=== PATIENT | female | born 1940 | race African-American/Black ===

== ENCOUNTER 2016-11-25 13:13 | Inpatient (IN) | payer MEDICARE, BC, OTHER ==
[~2016-11-25] VITALS: Ht 154.9 cm; Wt 60.8 kg
[~2016-11-25 13:13] MED LIST: ADALAT CC60 MG ORAL; ADALAT CC90 MG ORAL; ASPIR 8181 MG ORAL; ATORVASTATIN CA80 MG ORAL; CATAPRES0.3 MG ORAL; CLONIDINE 0.2M0.2 MG PO; COREG3.125 MG ORAL; COZAAR50 MG ORAL; FUROSEMIDE80 MG ORAL; GLUCOTROL5 MG ORAL; HYDRALAZINE HCL50 MG PO; HYDROCHLOROTHIA25 MG ORAL; IRON325 M2 PO; LABETALOL HCL200 MG ORAL; LEVEMIR100 UNIT/1 SUBQ; LOSARTAN POTASS50 MG ORAL; METFORMIN HCL850 M1 ORAL; MINOXIDIL2.5 MG ORAL; NEPHROVITE1 TAB ORAL; POTASSIUM CHLO20 ME1 ORAL; RENVELA0.8 GM ORAL
[2016-11-25 13:40] VITALS: BP 130/57
[2016-11-25 14:00] LABS: BASOPHILS % (AUTO) 1.8 % (0.0-2.0); EOSINOPHILS % (AUTO) 0.4 % (0.0-3.0); LYMPHOCYTES % (AUTO) 17.7 % (20.0-45.0); MEAN CORPUSCULAR HEMOGLOBIN 27.1 PG (27.0-31.0); MEAN CORPUSCULAR HGB CONC 31.3 G/DL (32.0-36.0); MEAN CORPUSCULAR VOLUME 87 FL (80-99); MEAN PLATELET VOLUME 10.4 FL (6.5-10.1); MONOCYTES % (AUTO) 7.5 % (1.0-10.0); NEUTROPHILS % (AUTO) 72.7 % (45.0-75.0); PLATELET COUNT 191 K/UL (150-450); RED BLOOD COUNT 3.97 M/UL (4.20-5.40); RED CELL DISTRIBUTION WIDTH 19.9 % (11.6-14.8); WHITE BLOOD COUNT 10.2 K/UL (4.8-10.8)
[2016-11-25 14:12] LABS: PROTHROMBIN TIME 10.3 SEC (9.30-11.50)
[2016-11-25 14:15] LABS: ALANINE AMINOTRANSFERASE 26 U/L (3-33); ALBUMIN/GLOBULIN RATIO 1.1 (1.0-2.7); ANION GAP 16 (5-15); ASPARTATE AMINO TRANSFERASE 25 U/L (5-40); CALCIUM 9.4 mg/dL (8.6-10.2); CARBON DIOXIDE 28 mEQ/L (20-30); CHLORIDE 92 mEQ/L (98-107); CREATININE 4.8 mg/dL (0.5-0.9); HEMOLYSIS 4; SODIUM 136 mEQ/L (135-145); TOTAL PROTEIN 7.6 g/dL (6.6-8.7); TROPONIN I < 0.30 ng/mL (<=0.30)
[2016-11-25 14:26] LABS: CKMB 2.9 ng/mL (< 3.8)
--- NOTE | 2016-11-25 14:28 | Diagnostic Imaging Report ---
Indications: Shortness of breath Technique: Portable AP chest Findings: Comparison: None Cardiac silhouette remains upper limits of normal in size. Pulmonary vasculature remains within normal limits. Inspiratory effort has decreased. Visualized portions of lungs and pleura remain clear. Mild calcification and elongation of the aortic arch is again noted. IMPRESSION: No evidence of acute disease, unchanged Stable chronic changes as described
[2016-11-25 14:43] LABS: APPEARANCE,URINE SLIGHTLY CLOUDY; KETONES,URINE NEGATIVE (NEGATIVE); LEUKOCYTE ESTERASE ,URINE 1+ (NEGATIVE); NITRITE,URINE NEGATIVE (NEGATIVE); PH,URINE 9 (4.5-8.0); PROTEIN,URINE 3+ (NEGATIVE); UROBILINOGEN,URINE NORMAL MG/DL (0.0-1.0)
[2016-11-25 14:53] LABS: BACTERIA,URINE FEW /HPF; RBC,URINE 0-2 /HPF (0 - 2); SQUAMOUS EPITHELIAL CELL,UR MODERATE /LPF (NONE/OCC); WBC,URINE 0-2 /HPF (0 - 2)
--- NOTE | 2016-11-25 15:36 | Emergency Room Report ---
History of Present Illness General Chief Complaint: Chest Pain Source: Patient Present Illness HPI This patient presents with intermittent chest pain for primarily today. She is also fell general malaise and been lightheaded. She denies cough or congestion. She denies fever or chills. She does have end-stage renal disease but with her dialysis yesterday. She denies abdominal pain. She has no other complaints. Allergies: Coded Allergies: No Known Allergies (Verified , 10/07/08) Patient History Past Medical History: see triage record, DM, HTN, CAD, CHF, renal disease, dialysis Past Surgical History: other - ectopic tubal ligation Social History: Denies: alcohol use, drug use, smoking Reviewed Nursing Documentation: PMH: Agreed, PSxH: Agreed Nursing Documentation-PMH Past Medical History: No History, Except For Hx Cardiac Problems: Yes Hx Hypertension: Yes Hx Diabetes: Yes Hx Cancer: No Hx Gastrointestinal Problems: No Hx Dialysis: Yes - HEMODIALYSIS MWF Hx Neurological Problems: No Review of Systems All Other Systems: negative except mentioned in HPI Physical Exam Vital Signs Date Time Temp Pulse Resp B/P Pulse Ox O2 Delivery O2 Flow Rate FiO2 11/25/16 13:20 97.3 70 14 140/62 99 Room Air Sp02 EP Interpretation: reviewed, normal General Appearance: no apparent distress, alert, GCS 15, non-toxic Head: normocephalic, atraumatic Eyes: bilateral eye PERRL, bilateral eye normal inspection ENT: hearing grossly normal, normal pharynx, no angioedema, normal voice Neck: full range of motion, supple/symm/no masses Respiratory: chest non-tender, lungs clear, normal breath sounds, speaking full sentences Cardiovascular #1: regular rate, rhythm, no edema Gastrointestinal: normal bowel sounds, non tender, soft, non-distended, no guarding, no rebound Musculoskeletal: back normal, normal range of motion, non-tender Neurologic: alert, oriented x3, responsive, motor strength/tone normal, sensory intact, speech normal Psychiatric: judgement/insight normal, memory normal, mood/affect normal, no suicidal/homicidal ideation Skin: normal color, no rash, warm/dry, well hydrated Medical Decision Making Diagnostic Impression: Primary Impression: Chest pain ER Course This patient presents with chest pain. She continues to have stuttering chest pain. She has a negative initial workup. However given her baseline chronic medical conditions, I felt that I should admit this patient to rule out acute coronary syndrome. Apparently, she has had a heart catheterization that has been negative in the past. However, the patient continues to have chest pain here in the emergency department. No evidence of congestive heart failure on chest x-ray. Otherwise a negative workup. She is admitted to telemetry. Labs Test 11/25/16 13:55 11/25/16 14:21 White Blood Count 10.2 K/UL (4.8-10.8) Red Blood Count 3.97 M/UL (4.20-5.40) Hemoglobin 10.8 G/DL (12.0-16.0) Hematocrit 34.4 % (37.0-47.0) Mean Corpuscular Volume 87 FL (80-99) Mean Corpuscular Hemoglobin 27.1 PG (27.0-31.0) Mean Corpuscular Hemoglobin Concent 31.3 G/DL (32.0-36.0) Red Cell Distribution Width 19.9 % (11.6-14.8) Platelet Count 191 K/UL (150-450) Mean Platelet Volume 10.4 FL (6.5-10.1) Neutrophils (%) (Auto) 72.7 % (45.0-75.0) Lymphocytes (%) (Auto) 17.7 % (20.0-45.0) Monocytes (%) (Auto) 7.5 % (1.0-10.0) Eosinophils (%) (Auto) 0.4 % (0.0-3.0) Basophils (%) (Auto) 1.8 % (0.0-2.0) Prothrombin Time 10.3 SEC (9.30-11.50) Prothromb Time International Ratio 1.0 (0.9-1.1) Activated Partial Thromboplast Time 27 SEC (23-33) Sodium Level 136 mEQ/L (135-145) Potassium Level 4.0 mEQ/L (3.4-4.9) Chloride Level 92 mEQ/L (98-107) Carbon Dioxide Level 28 mEQ/L (20-30) Anion Gap 16 (5-15) Blood Urea Nitrogen 28 mg/dL (7-23) Creatinine 4.8 mg/dL (0.5-0.9) Estimat Glomerular Filtration Rate mL/min (>60) Glucose Level 60 mg/dL (74-106) Calcium Level 9.4 mg/dL (8.6-10.2) Total Bilirubin 0.2 mg/dL (0.0-1.2) Aspartate Amino Transf (AST/SGOT) 25 U/L (5-40) Alanine Aminotransferase (ALT/SGPT) 26 U/L (3-33) Alkaline Phosphatase 128 U/L (35-104) Total Creatine Kinase 150 U/L (26-140) Creatine Kinase MB 2.9 ng/mL (< 3.8) Creatine Kinase MB Relative Index 1.9 Troponin I < 0.30 ng/mL (<=0.30) Pro-B-Type Natriuretic Peptide 1804 pg/mL (0-450) Total Protein 7.6 g/dL (6.6-8.7) Albumin 4.1 g/dL (3.5-5.2) Globulin 3.5 g/dL Albumin/Globulin Ratio 1.1 (1.0-2.7) Urine Color Pale yellow Urine Appearance Slightly cloudy Urine pH 9 (4.5-8.0) Urine Specific [place] 1.015 (1.005-1.035) Urine Protein 3+ (NEGATIVE) Urine Glucose (UA) Negative (NEGATIVE) Urine Ketones Negative (NEGATIVE) Urine Occult Blood Negative (NEGATIVE) Urine Nitrite Negative (NEGATIVE) Urine Bilirubin Negative (NEGATIVE) Urine Urobilinogen Normal MG/DL (0.0-1.0) Urine Leukocyte Esterase 1+ (NEGATIVE) Urine RBC 0-2 /HPF (0 - 2) Urine WBC 0-2 /HPF (0 - 2) Urine Squamous Epithelial Cells Moderate /LPF (NONE/OCC) Urine Bacteria Few /HPF (NONE) EKG Diagnostic Results Rate: normal Rhythm: NSR ST Segments: no acute changes Rhythm Strip Diag. Results EP Interpretation: yes Rate: 60's Rhythm: NSR, no PVC's, no ectopy Chest X-Ray Diagnostic Results EP Interpretation: Yes Findings: no consolidation, no effusion, no pneumothorax, no acute cardiopulmonary disease Number of Views: 1 Last Vital Signs Date Time Temp Pulse Resp B/P Pulse Ox O2 Delivery O2 Flow Rate FiO2 11/25/16 13:40 59 20 Room Air 11/25/16 13:40 98.0 130/57 100 Disposition: ADMITTED INPATIENT Condition: Stable Referrals: NOT CHOSEN IPA/MD,REFERRING (PCP) COLIANNO,GRACIELA M D.O. Nov 25, 2016 15:36
[2016-11-25] MEDS ORDERED: HYDRALAZINE HCL50 MG ORAL (15:37)
[2016-11-25 15:42] VITALS: BP 147/50
[2016-11-25] MEDS ORDERED: Norco 5mg/325mg tab ORAL ONE (17:30)
[2016-11-25 17:46] VITALS: BP 164/55
[2016-11-25 18:35] VITALS: BP 159/58
[2016-11-25 20:23] VITALS: BP 166/53
[2016-11-25] MEDS ORDERED: Norco 5mg/325mg tab ORAL PRN (21:45)
--- NOTE | 2016-11-25 22:37 | Consultation ---
DATE OF CONSULTATION: 11/25/2016 NEPHROLOGY CONSULTATION CONSULTING PHYSICIAN: Herman Hmam M.D. REFERRING PHYSICIAN: Abraham Wren M.D. REASON FOR CONSULTATION: End-stage renal disease and multiple medical problems. HISTORY OF PRESENT ILLNESS: The patient is well known to me and I saw her on the day prior to admission on dialysis and she was doing well. She has been on dialysis for a number of years, likely about 4 to 6 years with severe end-stage renal disease secondary to hypertension and diabetes, long-standing. She did have an episode of herpes zoster with rash on the right side of her chest about 3 months ago. She has had [id number] hypertension and bradycardia due to medications for hypertension including clonidine. The patient generally has been doing well. She has chronic diastolic CHF and this has been well compensated and she has not had any problems with shortness of breath or cough lately. Today, she comes in to the emergency room stating she feels miserable, she has pain on the right side of the chest under the clavicle. It is moderately severe. She is also having pain radiating from the right groin down to the right foot. She does have history of vascular disease and has had a left axillary femoral bypass or possibly bi-femoral bypass, but she does not give good history of claudication. She does have a right arm AV fistula which has been working well, but the pain seems to be in the chest above the right arm fistula. PAST SURGICAL HISTORY: Prior surgeries include tubal , vascular surgery a left axillary femoral bypass, section, cataracts in both eyes, and AV fistula in the right arm. HABITS: She is a nondrinker and nonsmoker. No use of illicit drugs. MEDICATIONS: Include Lantus 6 units daily, clonidine 0.4 mg b.i.d., Coreg 3.125 mg b.i.d., nifedipine 90 mg daily, hydralazine 150 mg b.i.d., losartan 100 mg daily, and Renvela 1 pill with each meal. SYSTEM REVIEW: HEAD, EYES, EARS, NOSE, THROAT: She has history of glaucoma and takes eyedrops. Hearing is good. ENDOCRINE: Long-standing diabetes. No thyroid disease. PULMONARY: No asthma, TB, or chronic cough. CARDIAC: History of hypertensive heart disease, malignant hypertension, prior diastolic dysfunction, and CHF. GASTROINTESTINAL: She has had some constipation lately. No hematochezia or melena. GENITOURINARY: No dysuria or hematuria. NEUROLOGIC: No CVA or seizures. MUSCULOSKELETAL: No history of severe joint pain. PHYSICAL EXAMINATION: GENERAL: The patient is alert, elderly lady, lying in bed, in the emergency room. VITAL SIGNS: Temperature 98 degrees, pulse 64, respirations 16, blood pressure 147/50, and pulse oximetry 100%. HEAD, EYES, EARS, NOSE, THROAT: Sclerae nonicteric. Ocular motions intact in all directions. Oral mucosa is moist. NECK: No adenopathy or thyroid enlargement. LUNGS: Clear. HEART: Rhythm is regular. Normal S1, S2. I hear no murmurs. ABDOMEN: Soft. No organomegaly or masses. CHEST: There is mild tenderness to the right upper chest wall. BREASTS: No masses. EXTREMITIES: No edema, cyanosis, or clubbing. There is a well-functioning AV fistula in the right upper arm. There is no inflammation along the fistula. SKIN: There is no herpetic rash, but there are some scars on the right side of her chest. VASCULAR: Her feet are warm, but I am unable to feel the pedal pulses. IMPRESSION: The patient presents with pain in the right side of her chest. This could be postherpetic neuralgia. She has had herpes zoster in this area, possibly this is related to AV fistula in the right arm, but it seems unlikely that this . She also has pain down the right leg which could be sciatica. She does not seem to have an acute vascular problem at this time. PLAN: The case was discussed with Dr. Abraham Wren. We will observe the patient and give her comfort measures. I will order fistulogram to evaluate the fistula in the right arm. She will receive maintenance dialysis in the hospital and we will update her laboratories and make further recommendations as her condition requires. Herman Hamm M.D. DR: Mariella JOB#: [id number] CC:
[2016-11-26] VITALS (34 sets, daily range): BP systolic 141–206; BP diastolic 54–86
--- NOTE | 2016-11-26 03:28 | History and Physical Report ---
DATE OF ADMISSION: 11/25/2016 REASON FOR ADMISSION: Chest pain and shortness of breath. HISTORY OF PRESENT ILLNESS: This is a 76-year-old female, who has a longstanding history of malignant hypertension and end-stage renal disease on hemodialysis for about 5 years. She was seen on dialysis yesterday by Dr. Hamm and was doing well. She was seen in my office today for routine followup, but presented saying that she started feeling few hours earlier. She noted shortness of breath, chest pain, and feeling that she was very miserable and could not manage. This is quite unusual for her and she to seek any medical attention or hospitalizations. The patient notes severe pain on the right side of her chest under the clavicle region and radiation from the groin to the foot. She did not have any fevers, chills, nausea, vomiting, or trauma to the chest wall. PAST MEDICAL HISTORY: Peripheral artery disease, status post bypass, history of AV fistula of the right upper extremity, history of tubal , status post left axillary fem bypass, cataracts, hyperlipidemia, end-stage renal disease, hypertensive heart disease, and diastolic dysfunction. MEDICATIONS: Reviewed and reconciled. ALLERGIES: None known. SOCIAL HISTORY: Negative for smoking or alcohol use. REVIEW OF SYSTEMS: An outpatient echocardiogram has revealed normal ejection fraction, concentric hypertrophy, [id number] pulmonary hypertension, and mild valvular regurgitation. She has a history of sinus bradycardia with longstanding and asymptomatic and likely due to her medication regimen that has included beta-blockers and clonidine. There is no history of asthma. There is no history of blood clots in the leg. She has had prior vascular revascularizations of her lower extremities. She is on dialysis three times a week. She is quite compliant with medications. PHYSICAL EXAMINATION: GENERAL: Awake and alert, but distress. VITAL SIGNS: Temperature afebrile, blood pressure 147/50, pulse 64, and respiratory rate 16. HEENT: Temporal wasting. Pale conjunctivae. Arcus seniles. Oropharynx clear. Mucous membranes moist. NECK: Supple. No adenopathy. Jugular venous pressure normal. LUNGS: Clear. CARDIAC: Regular rhythm and rate. Normal S1 and S2 with a fourth heart sound and a 1/6 systolic murmur at the lower left sternal border. BREASTS: Without masses, but chest wall is severely tender to palpation over the right upper chest. ABDOMEN: Soft and nontender with no organomegaly. EXTREMITIES: Revealed no clubbing, cyanosis, or edema. Right upper extremity fistula has a palpable bruits. Revealed good perfusion, but no palpable distal pulses over the lower extremities. LABORATORY DATA: EKG revealed sinus rhythm with nonspecific ST changes and no acute abnormalities. Labs, urinalysis, no active sediment. Sodium 136, potassium 4, bicarbonate 28, BUN 28, and creatinine 4.6. Pro-natriuretic peptide 1800. INR 1. White count is 10.2 and hemoglobin 10.8. Chest x-ray with no acute disease. IMPRESSION: Chest pain, rule out ischemia. Other considerations would include postherpetic neuralgia, musculoskeletal symptoms, possibility of pulmonary embolus must be considered as well likely if present of thrombosis from the lower extremities. Possible also be due to from her fistula. PLAN: Recommend cardiac monitoring, serial troponin, pain control, hemodialysis with ultrafiltration, fistulogram evaluation of right upper extremity fistula. Venous duplex of lower extremity. Abraham rWen M.D. DR: Mildred JOB#: [id number] CC:
[2016-11-26] MEDS ORDERED: Heparin Sod 1000 units/ml 10ml IV PRN (06:00)
[2016-11-26 06:56] LABS: BASOPHILS % (AUTO) 0.9 % (0.0-2.0); EOSINOPHILS % (AUTO) 1.6 % (0.0-3.0); LYMPHOCYTES % (AUTO) 6.6 % (20.0-45.0); MEAN CORPUSCULAR HEMOGLOBIN 27.5 PG (27.0-31.0); MEAN CORPUSCULAR HGB CONC 31.5 G/DL (32.0-36.0); MEAN CORPUSCULAR VOLUME 87 FL (80-99); MEAN PLATELET VOLUME 8.3 FL (6.5-10.1); MONOCYTES % (AUTO) 6.3 % (1.0-10.0); NEUTROPHILS % (AUTO) 84.5 % (45.0-75.0); PLATELET COUNT 156 K/UL (150-450); RED BLOOD COUNT 4.05 M/UL (4.20-5.40); RED CELL DISTRIBUTION WIDTH 19.5 % (11.6-14.8); WHITE BLOOD COUNT 12.5 K/UL (4.8-10.8)
[2016-11-26 09:00] LABS: ANION GAP 13 (5-15); CARBON DIOXIDE 26 mEQ/L (20-30); CHLORIDE 99 mEQ/L (98-107); CREATININE 2.8 mg/dL (0.5-0.9); HEMOLYSIS 7; POTASSIUM 3.5 mEQ/L (3.4-4.9); SODIUM 138 mEQ/L (135-145)
[2016-11-26] MEDS: Losartan 50mg tab ORAL SCH (11:24)
[2016-11-26] MEDS ORDERED: Heparin 2000 units/Ns 1000ml INJ ONE (12:30)
[2016-11-26] MEDS ORDERED: Heparin Sod 1000 units/ml 10ml INJ ONE ×2 (12:30→13:15)
[2016-11-26] MEDS ORDERED: Lidocaine 1% Plain 30 ml INJ ONE (12:30)
[2016-11-26] MEDS ORDERED: Sodium Bicarbonate 8.4% 50ml Inj IV ONE (12:30)
--- NOTE | 2016-11-26 12:43 | Pre-Procedure Note/Attestation ---
Pre-Procedure Note/Attestation Complete Prior to Procedure Planned Procedure: right Procedure Narrative: fistuolgram and possible intervention Indications for Procedure Pre-Operative Diagnosis: Chest pain Attestation I attest that I discussed the nature of the procedure; its benefits; risks and complications; and alternatives (and the risks and benefits of such alternatives ), prior to the procedure, with the patient (or the patient's legal teleservices representative). I attest that, if there was a reasonable possibility of needing a blood transfusion, the patient (or the patient's legal teleservices representative) was given the [facility] standardized written summary, pursuant to the Otto Harshad Blood Safety Act ([place] Health and Safety Code # 1645, as amended). I attest that I re-evaluated the patient just prior to the surgery and that there has been no change in the patient's H&P, except as documented below: DEVENDRA BARROSO M.D. Nov 26, 2016 12:43
[2016-11-26] MEDS: HydrALAZINE 50mg tab ORAL SCH ×2 (14:07→22:07)
[2016-11-26] MEDS: NovoLOG Insulin Flexpen SUBQ SCH ×3 (14:08→22:10)
--- NOTE | 2016-11-26 17:13 | Nephrology Progress Note ---
Assessment/Plan Problem List: (1) Sciatica (2) Dialysis AV fistula malfunction (3) End-stage renal disease (4) DM circ dis type I (5) Chest pain Plan dialysis 11/26 stable. Fistulogram done with 2 areas of stenosis--angioplastied Subjective Constitutional: Reports: weakness HEENT: Reports: no symptoms Genitourinary: Reports: no symptoms Neurologic/Psychiatric: Reports: no symptoms Subjective R chest pain better Objective Objective Last 24 Hour Vital Signs Date Time Temp Pulse Resp B/P Pulse Ox O2 Delivery O2 Flow Rate FiO2 11/26/16 16:00 98.8 68 13 165/72 97 Room Air 11/26/16 14:07 186/61 11/26/16 13:48 65 16 186/61 96 Room Air 11/26/16 13:40 65 16 186/61 94 Room Air 11/26/16 13:35 64 14 192/78 93 Room Air 11/26/16 13:30 65 15 191/79 92 Room Air 11/26/16 13:25 64 31 190/79 93 Room Air 11/26/16 13:20 66 24 190/76 94 Room Air 11/26/16 13:15 66 15 189/74 95 Room Air 11/26/16 13:10 65 26 206/77 97 Room Air 11/26/16 13:05 65 15 192/84 99 Room Air 11/26/16 13:00 64 29 183/79 94 Room Air 11/26/16 12:55 63 14 185/78 99 Room Air 11/26/16 12:47 65 16 11/26/16 12:00 68 11/26/16 11:26 176/80 11/26/16 11:24 176/80 11/26/16 11:23 70 176/80 11/26/16 10:55 97.9 60 159/75 11/26/16 10:45 63 165/84 11/26/16 10:30 64 189/78 11/26/16 10:15 63 174/86 11/26/16 10:00 61 157/77 11/26/16 09:45 57 171/69 11/26/16 09:30 59 170/78 11/26/16 09:15 55 182/77 11/26/16 09:00 48 176/80 11/26/16 09:00 58 171/72 11/26/16 08:45 65 178/79 11/26/16 08:44 97.7 61 18 168/77 99 Room Air 11/26/16 08:30 62 172/80 11/26/16 08:15 61 168/77 11/26/16 08:00 59 171/78 11/26/16 08:00 61 11/26/16 07:45 61 166/78 11/26/16 07:30 56 147/65 11/26/16 07:25 97.7 57 152/69 11/26/16 04:07 55 11/26/16 04:00 99.9 62 20 142/58 100 Room Air 11/26/16 00:04 59 11/26/16 00:00 98.1 60 20 150/60 97 Room Air 11/25/16 21:19 98.0 55 15 166/53 100 Room Air 11/25/16 20:23 98.0 55 15 166/53 100 Room Air 11/25/16 18:35 98.0 55 13 159/58 100 Room Air 11/25/16 18:26 98.0 11/25/16 17:46 98.0 58 16 164/55 100 Room Air Intake and Output 11/25/16 11/26/16 19:00 07:00 Output Total 2 ml Balance -2 ml Output Urine Total 2 ml # Voids 1 1 Laboratory Tests 11/26/16 05:35: White Blood Count 12.5H, Red Blood Count 4.05L, Hemoglobin 11.1L, Hematocrit 35.3L, Mean Corpuscular Volume 87, Mean Corpuscular Hemoglobin 27.5, Mean Corpuscular Hemoglobin Concent 31.5L, Red Cell Distribution Width 19.5H, Platelet Count 156, Mean Platelet Volume 8.3, Neutrophils (%) (Auto) 84.5H, Lymphocytes (%) (Auto) 6.6L, Monocytes (%) (Auto) 6.3, Eosinophils (%) (Auto) 1.6, Basophils (%) (Auto) 0.9, Sodium Level 138, Potassium Level 3.5, Chloride Level 99, Carbon Dioxide Level 26, Anion Gap 13, Blood Urea Nitrogen 19, Creatinine 2.8H, Estimat Glomerular Filtration Rate , Glucose Level 140H, Calcium Level 9.0 Height (Feet): 5 Height (Inches): 1.00 Weight (Pounds): 134 General Appearance: WD/WN, no apparent distress, alert EENT: PERRL/EOMI Neck: non-tender, normal alignment Cardiovascular: normal rate, regular rhythm Respiratory/Chest: lungs clear Abdomen: non tender, soft, no organomegaly Extremities: other 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
[2016-11-27 04:25] VITALS: BP 146/57
[2016-11-27] MEDS: HydrALAZINE 50mg tab ORAL SCH ×3 (06:22→21:47)
[2016-11-27] MEDS: NovoLOG Insulin Flexpen SUBQ SCH ×4 (06:24→21:15)
[2016-11-27 08:00] VITALS: BP 150/58
[2016-11-27] MEDS: Losartan 50mg tab ORAL SCH (10:21)
--- NOTE | 2016-11-27 11:18 | Nephrology Progress Note ---
Assessment/Plan Problem List: (1) Sciatica (2) Dialysis AV fistula malfunction (3) End-stage renal disease (4) DM circ dis type I (5) Chest pain Plan dialysis 11/26 stable. Fistulogram done with 2 areas of stenosis--angioplastied , pain resolving, Subjective Constitutional: Reports: no symptoms HEENT: Reports: no symptoms Genitourinary: Reports: no symptoms Neurologic/Psychiatric: Reports: no symptoms Subjective R chest pain better Objective Objective Last 24 Hour Vital Signs Date Time Temp Pulse Resp B/P Pulse Ox O2 Delivery O2 Flow Rate FiO2 11/27/16 10:22 58 150/58 11/27/16 10:21 150/58 11/27/16 10:21 150/58 11/27/16 08:00 58 11/27/16 06:22 146/57 11/27/16 04:25 97.7 58 18 146/57 95 Room Air 11/27/16 04:00 55 11/27/16 00:00 52 11/26/16 23:44 98.4 56 18 141/54 97 Room Air 11/26/16 22:07 156/68 11/26/16 22:07 156/68 11/26/16 20:10 98.2 68 14 156/68 96 Room Air 11/26/16 20:00 63 11/26/16 18:41 68 165/72 11/26/16 16:00 98.8 68 13 165/72 97 Room Air 11/26/16 16:00 58 11/26/16 14:07 186/61 11/26/16 13:48 65 16 186/61 96 Room Air 11/26/16 13:40 65 16 186/61 94 Room Air 11/26/16 13:35 64 14 192/78 93 Room Air 11/26/16 13:30 65 15 191/79 92 Room Air 11/26/16 13:25 64 31 190/79 93 Room Air 11/26/16 13:20 66 24 190/76 94 Room Air 11/26/16 13:15 66 15 189/74 95 Room Air 11/26/16 13:10 65 26 206/77 97 Room Air 11/26/16 13:05 65 15 192/84 99 Room Air 11/26/16 13:00 64 29 183/79 94 Room Air 11/26/16 12:55 63 14 185/78 99 Room Air 11/26/16 12:47 65 16 11/26/16 12:00 68 11/26/16 11:26 176/80 11/26/16 11:24 176/80 11/26/16 11:23 70 176/80 Intake and Output 11/26/16 11/27/16 19:00 07:00 Intake Total 2500 ml 300 ml Output Total 2000 ml Balance 500 ml 300 ml Intake Oral 300 ml Hemodialysis 2500 ml Hemodialysis UF 2000 ml # Voids 3 # Bowel Movements 1 Height (Feet): 5 Height (Inches): 1.00 Weight (Pounds): 134 General Appearance: WD/WN, no apparent distress EENT: normal ENT inspection Neck: normal alignment Cardiovascular: regular rhythm Respiratory/Chest: lungs clear Abdomen: non tender, soft 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
[2016-11-27 12:00] VITALS: BP 144/62
[2016-11-27 16:00] VITALS: BP 125/56
[2016-11-27 20:00] VITALS: BP 147/59
[2016-11-28] VITALS: BP 140/62
--- NOTE | 2016-11-28 01:38 | Progress Note ---
DATE: 11/26/2016 CARDIOLOGY PROGRESS NOTE Late entry for 11/26/2016. SUBJECTIVE: The patient has less pain, but continues to have discomfort over her right chest and arm. She has no shortness of breath. OBJECTIVE: VITAL SIGNS: Afebrile, blood pressure 176/80 to 192/78 with heart rate 48 to 65, and respiratory rate 18. HEENT: Conjunctivae pink. Arcus senilis. Oropharynx clear. NECK: Supple. LUNGS: Clear. CARDIAC: Regular rhythm rate. Normal S1 and S2 with a fourth heart sound. ABDOMEN: Soft. EXTREMITIES: No edema. The digits of the hand and the feet are perfused. IMPRESSION: 1. Arteriovenous fistula malfunction. 2. End-stage renal disease. 3. Anginal syndrome/chest pain. 4. Insulin-requiring diabetes mellitus with neuropathy. 5. Sciatica. 6. Hypertensive heart disease with hypertensive urgency. 7. Sinus bradycardia. PLAN: 1. Discontinue Coreg. 2. Advance remainder of antihypertensive regimen with caution. 3. Orthostatic precautions. 4. Fistulogram planned to evaluate for stenosis. 5. Hemodialysis with ultrafiltration to follow. Abraham Wren M.D. DR: PRIYANKA JOB#: [id number] CC:
[2016-11-28 04:00] VITALS: BP 158/70
--- NOTE | 2016-11-28 04:18 | Progress Note ---
DATE: 11/27/2016 CARDIOLOGY AND INTERNAL MEDICINE PROGRESS NOTE SUBJECTIVE: The patient had a fistulogram yesterday. Two areas of stenoses were angioplastied. The patient has less discomfort and no pain today. OBJECTIVE: VITAL SIGNS: Blood pressure improved, but still labile in the high range. Digits are perfused. NECK: Supple. LUNGS: Clear. CARDIAC: Regular rhythm and rate. Normal S1 and S2 with a fourth heart sound. ABDOMEN: Soft. EXTREMITIES: Without edema. IMPRESSION: 1. 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 2. Anginal syndrome. 3. Hypertensive urgency. 4. Acute and chronic diastolic congestive heart failure. 5. End-stage renal disease. 6. Insulin-requiring diabetes with neuropathy. PLAN: Pain control. Titrate antihypertensive regimen. Hemodialysis with ultrafiltration per dam worker. Continue antiplatelet therapy and statin drug. Mobilize. Abraham Wren M.D. DR: Carla JOB#: [id number] CC:
[2016-11-28] MEDS: HydrALAZINE 50mg tab ORAL SCH ×3 (06:17→21:52)
[2016-11-28] MEDS: NovoLOG Insulin Flexpen SUBQ SCH ×4 (06:42→21:59)
[2016-11-28] MEDS: Losartan 50mg tab ORAL SCH ×2 (09:14→09:15)
[2016-11-28] MEDS: Aspirin Baby 81mg ORAL SCH (09:16)
--- NOTE | 2016-11-28 09:22 | General Progress Note ---
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 ICD Codes: T82.898A - Other specified complication of vascular prosthetic devices, implants and grafts, initial encounter SNOMED: 136817770 (2) DM circ dis type I ICD Codes: E10.59 - DM circ dis type I SNOMED: 65287092 (3) Sciatica ICD Codes: M54.30 - Sciatica, unspecified side SNOMED: 16577939 (4) Chest pain ICD Codes: R07.9 - Chest pain, unspecified SNOMED: 18044172 (5) End-stage renal disease ICD Codes: N18.6 - End-stage renal disease SNOMED: 08302896 (6) Dialysis AV fistula malfunction ICD Codes: T82.590A - Other mechanical complication of surgically created arteriovenous fistula, initial encounter SNOMED: 725802002 Status: stable, progressing Assessment/Plan HD antiplt rx pain rx mobilize Subjective ROS Limited/Unobtainable: No Constitutional: Reports: malaise, weakness HEENT: Reports: no symptoms Cardiovascular: Reports: chest pain Respiratory: Reports: no symptoms Gastrointestinal/Abdominal: Reports: no symptoms Genitourinary: Reports: no symptoms Neurologic/Psychiatric: Reports: no symptoms Endocrine: Reports: no symptoms Hematologic/Lymphatic: Reports: no symptoms Allergies: Coded Allergies: No Known Allergies (Verified , 10/07/08) All Systems: reviewed and negative except above Subjective events noted. no new complaints. no chest pain or cough. no headaches Objective Last 24 Hour Vital Signs Date Time Temp Pulse Resp B/P Pulse Ox O2 Delivery O2 Flow Rate FiO2 11/28/16 09:16 161/59 11/28/16 09:16 59 161/59 11/28/16 09:15 161/59 11/28/16 09:14 161/59 11/28/16 06:17 155/70 11/28/16 04:00 98.2 56 16 158/70 98 Room Air 11/28/16 04:00 55 11/28/16 00:00 52 11/28/16 00:00 98.1 55 16 140/62 99 Room Air 11/27/16 21:47 151/57 11/27/16 21:14 147/59 11/27/16 20:00 59 11/27/16 20:00 99.5 60 20 147/59 98 Room Air 11/27/16 18:00 54 125/56 11/27/16 16:00 48 11/27/16 16:00 97.2 54 18 125/56 98 Room Air 11/27/16 14:00 140/54 11/27/16 12:00 53 11/27/16 12:00 97.7 52 20 144/62 100 Room Air 11/27/16 10:22 58 150/58 11/27/16 10:21 150/58 11/27/16 10:21 150/58 Intake and Output 11/27/16 11/28/16 19:00 07:00 Intake Total 300 ml 240 ml Balance 300 ml 240 ml Intake Oral 300 ml 240 ml # Voids 1 1 # Bowel Movements 1 Height (Feet): 5 Height (Inches): 1.00 Weight (Pounds): 134 General Appearance: WD/WN, alert Neck: supple Cardiovascular: regular rhythm Respiratory/Chest: chest wall non-tender, lungs clear, normal breath sounds, no respiratory distress, no accessory muscle use Abdomen: normal bowel sounds, non tender, soft, no organomegaly, no mass Edema: no edema noted Arm (L), no edema noted Arm (R), no edema noted Leg (L), no edema noted Leg (R), no edema noted Pedal (L), no edema noted Pedal (R), no edema noted Generalized 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
--- NOTE | 2016-11-28 10:23 | Nephrology Progress Note ---
Assessment/Plan Problem List: (1) Sciatica (2) Dialysis AV fistula malfunction (3) End-stage renal disease (4) DM circ dis type I (5) Chest pain Plan dialysis / stable. Fistulogram done with 2 areas of stenosis--angioplastied , pain resolving, Subjective Constitutional: Reports: no symptoms HEENT: Reports: no symptoms Genitourinary: Reports: no symptoms Neurologic/Psychiatric: Reports: no symptoms Subjective R chest pain better Objective Objective Last 24 Hour Vital Signs Date Time Temp Pulse Resp B/P Pulse Ox O2 Delivery O2 Flow Rate FiO2 11/28/16 09:16 161/59 11/28/16 09:16 59 161/59 11/28/16 09:15 161/59 11/28/16 09:14 161/59 11/28/16 06:17 155/70 11/28/16 04:00 98.2 56 16 158/70 98 Room Air 11/28/16 04:00 55 11/28/16 00:00 52 11/28/16 00:00 98.1 55 16 140/62 99 Room Air 11/27/16 21:47 151/57 11/27/16 21:14 147/59 11/27/16 20:00 59 11/27/16 20:00 99.5 60 20 147/59 98 Room Air 11/27/16 18:00 54 125/56 11/27/16 16:00 48 11/27/16 16:00 97.2 54 18 125/56 98 Room Air 11/27/16 14:00 140/54 11/27/16 12:00 53 11/27/16 12:00 97.7 52 20 144/62 100 Room Air Intake and Output 11/27/16 11/28/16 19:00 07:00 Intake Total 300 ml 240 ml Balance 300 ml 240 ml Intake Oral 300 ml 240 ml # Voids 1 1 # Bowel Movements 1 Height (Feet): 5 Height (Inches): 1.00 Weight (Pounds): 134 General Appearance: no apparent distress, alert EENT: normal ENT inspection Neck: normal alignment Cardiovascular: normal rate Respiratory/Chest: lungs clear Abdomen: non tender, soft, no organomegaly Extremities: other - good thrill r avf 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
--- NOTE | 2016-11-28 10:29 | Diagnostic Imaging Report ---
Indication: Pain during dialysis, elevated venous pressures Technique: Informed consent obtained prior to commencing the procedure. Total sterile technique, including sterile gloves and hand hygiene, hat, mask, sterile gown, large sterile drape, and preparation with 2% chlorhexidine utilized. Under ultrasound guidance, puncture just anastomotic segment of right upper extremity brachiobasilic AV fistula antegrade using 21-gauge micro-needle, passage of an 08 guidewire, insertion 4 Trinidadian micropuncture introducer. Multistation fistulography then performed. This identified 2 stenoses, one in the axillary brachial junction, and one at the subclavian innominate venous junction. Over a 0.035 guidewire, a 6 Trinidadian sheath was inserted. Patient given 3000 units of heparin. The axilla brachial lesion was dilated, initially with a 7 mm x 4 cm balloon, with suboptimal result, subsequently with an 8 mm x 4 cm balloon. During the balloon inflation, contrast was refluxed across the arterial anastomosis and a fluoroscopic image was saved, demonstrating wide patency of the arterial anastomosis. Followup fistulography after balloon dilatation demonstrates markedly improved appearance of the angioplastied segment, with only mild residual stenosis and a small nonflow limiting dissection. Attention then turned to the Central lesion Multiple attempts made at directing the guidewire into the inferior vena cava. However, this was unsuccessful, so procedure was performed with the guidewire in the right atrium and careful monitoring of EKG. The central lesion was dilated using a 10 mm x 4 cm balloon catheter. Followup fistulography performed, demonstrating some residual weblike stenosis. The lesion was redilated. Followup fistulography performed, demonstrating resolution of stenosis, excellent flow, minimal reflux into a collateral that was evident previously. This was deemed satisfactory. Catheter and guidewires removed, pressure held until hemostasis was achieved. Palpable thrill was present post procedure. The patient tolerated the procedure well, without immediate complication. Comparison: None Findings: As above Impression: Stenoses of the brachial outflow and central outflow of left upper extremity brachiobasilic AV fistula, as described. Successful angioplasty of such with 8mm and 10 mm balloons, respectively, as described
[2016-11-28 12:00] VITALS: BP 154/58
--- NOTE | 2016-11-28 14:58 | Cardiology Report ---
APPROVED REPORT EKG Measurement Heart [id number] IA 160P43 [id number] Normal sinus rhythm Nonspecific T wave abnormality Abnormal ECG
[2016-11-28 16:00] VITALS: BP 138/56
[2016-11-28 20:00] VITALS: BP 150/56
[2016-11-28] MEDS ORDERED: Atorvastatin 80mg tab ORAL SCH (21:00)
[2016-11-29] VITALS (20 sets, daily range): BP systolic 118–159; BP diastolic 50–71
[2016-11-29] MEDS: HydrALAZINE 50mg tab ORAL SCH ×2 (05:36→13:10)
[2016-11-29] MEDS: NovoLOG Insulin Flexpen SUBQ SCH ×3 (05:44→18:15)
--- NOTE | 2016-11-29 07:54 | General Progress Note ---
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 ICD Codes: T82.898A - Other specified complication of vascular prosthetic devices, implants and grafts, initial encounter SNOMED: 030408591 (2) DM circ dis type I ICD Codes: E10.59 - DM circ dis type I SNOMED: 70161094 (3) Sciatica ICD Codes: M54.30 - Sciatica, unspecified side SNOMED: 98643806 (4) Chest pain ICD Codes: R07.9 - Chest pain, unspecified SNOMED: 81849087 (5) End-stage renal disease ICD Codes: N18.6 - End-stage renal disease SNOMED: 80716720 (6) Dialysis AV fistula malfunction ICD Codes: T82.590A - Other mechanical complication of surgically created arteriovenous fistula, initial encounter SNOMED: 313862193 Status: stable, progressing Assessment/Plan HD today antiplt rx pain rx mobilize dc planning if cleared by cards Subjective ROS Limited/Unobtainable: No Constitutional: Reports: malaise, weakness HEENT: Reports: no symptoms Cardiovascular: Reports: chest pain Respiratory: Reports: no symptoms Gastrointestinal/Abdominal: Reports: no symptoms Genitourinary: Reports: no symptoms Neurologic/Psychiatric: Reports: no symptoms Endocrine: Reports: no symptoms Hematologic/Lymphatic: Reports: no symptoms Allergies: Coded Allergies: No Known Allergies (Verified , 10/07/08) All Systems: reviewed and negative except above Subjective no events. denies chest pain or sob. no nausea or vomiting no headaches. scheduled for hd today Objective Last 24 Hour Vital Signs Date Time Temp Pulse Resp B/P Pulse Ox O2 Delivery O2 Flow Rate FiO2 11/29/16 05:36 133/57 11/29/16 04:25 98.0 59 20 133/57 96 Room Air 11/29/16 04:00 51 11/29/16 00:00 42 11/29/16 00:00 97.9 46 20 118/56 96 Room Air 11/28/16 21:52 150/56 11/28/16 21:52 150/56 11/28/16 20:00 97.9 95 20 150/56 93 Room Air 11/28/16 20:00 53 11/28/16 17:58 52 138/56 11/28/16 16:00 97.5 52 18 138/56 98 Room Air 11/28/16 16:00 51 11/28/16 14:28 133/53 11/28/16 12:00 50 11/28/16 12:00 96.6 51 20 154/58 100 Room Air 11/28/16 09:16 161/59 11/28/16 09:16 59 161/59 11/28/16 09:15 161/59 11/28/16 09:14 161/59 11/28/16 08:00 57 Intake and Output 11/28/16 11/29/16 19:00 07:00 Intake Total 450 ml Balance 450 ml Intake Oral 450 ml # Voids 1 1 # Bowel Movements 1 1 Height (Feet): 5 Height (Inches): 1.00 Weight (Pounds): 134 Objective General Appearance: WD/WN, alert Neck: supple Cardiovascular: regular rhythm Respiratory/Chest: chest wall non-tender, lungs clear, normal breath sounds, no respiratory distress, no accessory muscle use Abdomen: normal bowel sounds, non tender, soft, no organomegaly, no mass Edema: no edema noted Arm (L), no edema noted Arm (R), no edema noted Leg (L), no edema noted Leg (R), no edema noted Pedal (L), no edema noted Pedal (R), no edema noted 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
[2016-11-29] MEDS: Aspirin Baby 81mg ORAL SCH (08:34)
[2016-11-29] MEDS ORDERED: Heparin Sod 1000 units/ml 10ml IV ONE (10:30)
--- NOTE | 2016-11-29 16:36 | Nephrology Progress Note ---
Assessment/Plan Problem List: (1) Sciatica (2) Dialysis AV fistula malfunction (3) End-stage renal disease (4) DM circ dis type I (5) Chest pain Plan dialysis 11/26 stable. Fistulogram done with 2 areas of stenosis--angioplastied , pain resolving, Subjective Constitutional: Reports: no symptoms HEENT: Reports: no symptoms Genitourinary: Reports: no symptoms Neurologic/Psychiatric: Reports: no symptoms Subjective R chest pain better , stable on hd today Objective Objective Last 24 Hour Vital Signs Date Time Temp Pulse Resp B/P Pulse Ox O2 Delivery O2 Flow Rate FiO2 11/29/16 16:29 69 156/71 11/29/16 16:15 60 159/67 11/29/16 16:00 46 130/59 11/29/16 15:45 48 147/63 11/29/16 15:30 48 156/51 11/29/16 15:15 46 141/63 11/29/16 15:01 46 145/70 11/29/16 14:45 45 137/65 11/29/16 14:30 45 140/64 11/29/16 14:15 43 131/62 11/29/16 14:00 48 132/58 11/29/16 13:45 45 136/63 11/29/16 13:30 46 134/61 11/29/16 13:15 97.9 50 152/50 11/29/16 13:10 138/53 11/29/16 12:00 51 11/29/16 11:34 97.5 52 18 138/53 99 Room Air 11/29/16 08:34 147/59 11/29/16 08:34 64 147/59 11/29/16 08:08 96.4 64 18 147/59 99 Room Air 11/29/16 08:00 53 11/29/16 05:36 133/57 11/29/16 04:25 98.0 59 20 133/57 96 Room Air 11/29/16 04:00 51 11/29/16 00:00 42 11/29/16 00:00 97.9 46 20 118/56 96 Room Air 11/28/16 21:52 150/56 11/28/16 21:52 150/56 11/28/16 20:00 97.9 95 20 150/56 93 Room Air 11/28/16 20:00 53 1/8/17 17:58 52 138/56 Intake and Output 11/28/16 11/29/16 19:00 07:00 Intake Total 450 ml Balance 450 ml Intake Oral 450 ml # Voids 1 1 # Bowel Movements 1 1 Height (Feet): 5 Height (Inches): 1.00 Weight (Pounds): 134 LAILA GRAMAJO Nov 29, 2016 16:36
--- NOTE | 2016-11-29 18:47 | Progress Note ---
DATE: 11/28/2016 CARDIOLOGY PROGRESS NOTE SUBJECTIVE: The patient is status post fistulogram with angioplasty x2, pain is improving. OBJECTIVE: VITAL SIGNS: Blood pressure is 161/59, pulse rate 59, respiratory rate 16, and room air oxygen saturation 98%. NECK: Supple. LUNGS: Clear. CARDIAC: Regular. Normal S1 and S2 with a fourth heart sound. ABDOMEN: Soft. EXTREMITIES: No edema. Palpable bruit over graft. IMPRESSION: 1. Fistula stenosis and malfunction. 2. End-stage renal disease. 3. Sinus bradycardia, now better off beta-blockers. 4. 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 PLAN: 1. Continue current regimen. 2. tighter blood pressure control at this time. 3. Hemodialysis with ultrafiltration tomorrow if well tolerated can be discharged home for outpatient followup. Abraham Wren M.D. DR: Michael JOB#: [id number] CC:
--- NOTE | 2016-11-30 16:31 | Discharge Summary ---
Discharge Summary Hospital Course Date of Admission Nov 25, 2016 at 16:07 Date of Discharge Nov 29, 2016 at 19:24 Admitting Diagnosis Chest pain HPI Haroon Munguia is a 76 year old female who was admitted on Nov 25, 2016 at 16:07 for Chest Pain This patient presents with intermittent chest pain for 1 day. She was also complained of general malaise and had been lightheaded. No cough, or congestion. No fevers or chills. Patient with ESRD, on HD, last the day before coming to ED- apparently without complications no abdominal pain hx of recent postherpetic neuralgia close to the area where pain was felt Procedures s/p fistulogram with 2 areas of stenosis--s/p angioplasty , Hospital Course tele chest pain ECG with SR, nonspecific T wave abnormality, no ST changes, radiation monitor troponin negative r/out for acute VT differential for CP- ischemia vs fistula malfunctioning vs postherpetic neuralgia vs musculoskeletal pain management nephro followed HD with ultrafiltration s/ p fistulogram ( Fistulogram revealed with 2 areas of stenosis--s/p angioplasty) pain resolving, continue ASA, statin patient with hx of chronic diastolic heart failure, on diuretic, BP management with multiple regimen of anti HTN BS management with long acting Levemir and SS of short acting insulin prn pain resolved chest pain clearly was related to right arm fistula stenosis dc home follow up with PMD and outpatient HD reinforce compliance with medication regimen Discharge Medications Continued Medications: Aspirin* (Aspir 81*) 81 Mg Tablet. 81 MG ORAL DAILY, TAB Atorvastatin Calcium* (Lipitor*) 80 Mg Tablet 80 MG ORAL BEDTIME, TAB Carvedilol (Coreg) 3.125 Mg Tab 3.125 MG ORAL EVERY 12 HOURS, #60 TAB Clonidine Hcl* (Catapres*) 0.3 Mg Tablet 0.3 MG ORAL EVERY 12 HOURS, TAB Furosemide (Furosemide) 80 Mg Tab 80 MG ORAL EVERY 12 HOURS, TAB Hydralazine Hcl* (Hydralazine Hcl*) 50 Mg Tablet 50 MG ORAL BID, TAB Insulin Detemir (Levemir) 100 Unit/1 Ml Vial 14 UNITS SUBQ BEDTIME Losartan Potassium* (Losartan Potassium*) 50 Mg Tablet 100 MG ORAL DAILY, TAB Nifedipine Er* (Adalat Cc*) 90 Mg Tablet.er 90 MG ORAL EVERY 12 HOURS, TAB Do not chew or crush tablet Sevelamer Carbonate* (Renvela*) 0.8 Gm Powd.pack 800 MG ORAL THREE TIMES A DAY Vitamin B Cmplx/Vit C/Folic AC (Nephro-Wilfrid Tablet) 1 Tab Tab 1 TAB ORAL DAILY, #30 TAB 0 Refills Discharge Condition Upon Discharge: improving, stable Discharge Disposition Patient was discharged to Home (01) Discharge Diagnoses: (1) Steal syndrome of dialysis vascular access (2) Dialysis AV fistula malfunction (3) chest pain (4) Chronic diastolic HF (heart failure) (5) End-stage renal disease (6) DM circ dis type I Discharge Instructions Discharge Instructions Follow up with: PMD and nephro , outpt HD as scheduled Call MD/Return to Hospital if: chest pain, dyspnea, leg edema, palpitations, dizziness Diet: cardiac 2 GM Na, low fat, renal diabetic Activity: as tolerated Special Instructions I have been assigned to complete a D/C Summary on this account. I was not involved in the patient management For Congestive Heart Failure Reminder report weight gain 3-5 Lb in 1-2 days weight yourself daily limit fluids 1-1.5 L day comply with diet and medications fup with HD Lo Varner NP ([place]tein) Nov 30, 2016 16:30
--- NOTE | 2016-11-30 23:15 | Diagnostic Imaging Report ---
APPROVED REPORT CPT Code: 21032 Present Symptoms Comments: CHF DM HTN R/O DVT BILATERAL: Imaging reveals a patent deep venous system bilaterally. There is no evidence of thrombus within the femoral, popliteal or tibial segments. The greater saphenous veins are also within normal limits. Doppler indicates normal spontaneous flow within these segments.
== END 2016-11-29 19:24 | disposition home or self-care (01) | DRG 252 ==
LOC: ENRESERVTM → ENRESERVDT → EMR 13:50 → EDBEDREQ 15:39 → 2E 16:07 → EDBEDREQ 21:12
PROC: 5A1D60Z (ICD-10-PCS; principal; 2016-11-26)
PROC: 03753ZZ Dilation of Right Axillary Artery, Percutaneous Approach (ICD-10-PCS; principal; 2016-11-26)
PROC: 05753ZZ Dilation of Right Subclavian Vein, Percutaneous Approach (ICD-10-PCS; principal; 2016-11-26)
DX: T82.898A Other specified complication of vascular prosthetic devices, implants and grafts, initial encounter (principal); N18.6 End stage renal disease; I13.2 Hypertensive heart and chronic kidney disease with heart failure and with stage 5 chronic kidney disease, or end stage renal disease; I12.0 Hypertensive chronic kidney disease with stage 5 chronic kidney disease or end stage renal disease; E10.40 Type 1 diabetes mellitus with diabetic neuropathy, unspecified; I27.2 Other secondary pulmonary hypertension; E10.59 Type 1 diabetes mellitus with other circulatory complications; R07.9 Chest pain, unspecified; T82.858A Stenosis of other vascular prosthetic devices, implants and grafts, initial encounter; Y83.2 Surgical operation with anastomosis, bypass or graft as the cause of abnormal reaction of the patient, or of later complication, without mention of misadventure at the time of the procedure; M54.30 Sciatica, unspecified side; Z99.2 Dependence on renal dialysis; E78.5 Hyperlipidemia, unspecified; B02.9 Zoster without complications; Z79.4 Long term (current) use of insulin; I16.0 Hypertensive urgency; R00.1 Bradycardia, unspecified
CPT/HCPCS: 20501; 36415; 71010; 75964; 75978; 76080; 80048; 80053; 81003; 82550; 82553; 82962; 83880; 84484; 85025; 85610; 85730; 87081; 93005; 93970; J1815

== ENCOUNTER 2017-10-10 13:11 | Inpatient (IN) | payer MEDICARE, BC, OTHER ==
[~2017-10-10] VITALS: Ht 154.9 cm; Wt 53.2 kg
[~2017-10-10 13:11] MED LIST changes: +HYDRALAZINE HCL50 MG ORAL
--- NOTE | 2017-10-10 13:38 | Emergency Room Report ---
History of Present Illness General Chief Complaint: Altered Mental Status Source: Patient, EMS Present Illness HPI Patient is a 77-year-old female brought in by EMS after increased altered mental status. Patient was noted to have a blood sugar less than 20. The patient was brought in by EMS. She noted be diabetic as well as end-stage renal disease. She had been scheduled for dialysis today. She states she was last dialyzed on Tuesday. The patient had no complaints of shortness of breath Allergies: Coded Allergies: No Known Allergies (Verified , 10/07/08) Patient History Past Medical History: DM, HTN, renal disease, dialysis - mwf Reviewed Nursing Documentation: PMH: Agreed, PSxH: Agreed Nursing Documentation-PMH Hx Cardiac Problems: Yes Hx Hypertension: Yes Hx Diabetes: Yes Hx Cancer: No Hx Gastrointestinal Problems: No Hx Dialysis: Yes - -W- last dialyzed on 10/07/17 Hx Neurological Problems: No Review of Systems All Other Systems: limited - by poor historian Physical Exam Vital Signs Date Time Temp Pulse Resp B/P (MAP) Pulse Ox O2 Delivery O2 Flow Rate FiO2 10/10/17 13:13 97.0 60 16 165/66 100 Room Air Sp02 EP Interpretation: reviewed, normal General Appearance: normal inspection, well appearing, alert, Chronically Ill Head: atraumatic ENT: normal ENT inspection, hearing grossly normal, normal pharynx, normal voice Neck: normal inspection, full range of motion, supple, no bony tend Respiratory: normal inspection, normal breath sounds, no respiratory distress, no retraction Cardiovascular #1: no edema Gastrointestinal: normal inspection, normal bowel sounds, non tender, soft, no guarding, no hernia Genitourinary: no CVA tenderness Musculoskeletal: normal inspection, back normal, normal range of motion Neurologic: normal inspection, alert, oriented x3, responsive, special forces medical 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 Differential diagnosis included but was not limited to ischemic stroke, subarachnoid hemorrhage, hypoglycemia, spinal cord injury, neurodegenerative disorder, urinary tract infection, hypoxemia.Because of complexity of patient's case laboratory testing and imaging studies were ordered. EKG interpreted by me showed normal sinus rhythm with diffuse T wave inversion. CT the head read by radiology showed degenerative changes without evident intracranial hemorrhage or acute CVA. Patient was noted to have missed dialysis. BUN and creatinine was noted to be elevated laboratory testing. The patient was noted to have been taking long-acting insulin. Dr. Abraham Wren was contacted for inpatient management. The patient's repeat blood sugar somewhat improved. Labs Test 10/10/17 13:40 10/10/17 15:45 White Blood Count 16.0 K/UL (4.8-10.8) Red Blood Count 3.85 M/UL (4.20-5.40) Hemoglobin 10.8 G/DL (12.0-16.0) Hematocrit 33.7 % (37.0-47.0) Mean Corpuscular Volume 88 FL (80-99) Mean Corpuscular Hemoglobin 27.9 PG (27.0-31.0) Mean Corpuscular Hemoglobin Concent 31.9 G/DL (32.0-36.0) Red Cell Distribution Width 24.1 % (11.6-14.8) Platelet Count 280 K/UL (150-450) Mean Platelet Volume 6.9 FL (6.5-10.1) Neutrophils (%) (Auto) % (45.0-75.0) Lymphocytes (%) (Auto) % (20.0-45.0) Monocytes (%) (Auto) % (1.0-10.0) Eosinophils (%) (Auto) % (0.0-3.0) Basophils (%) (Auto) % (0.0-2.0) Differential Total Cells Counted 100 Neutrophils % (Manual) 92 % (45-75) Lymphocytes % (Manual) 3 % (20-45) Monocytes % (Manual) 5 % (1-10) Eosinophils % (Manual) 0 % (0-3) Basophils % (Manual) 0 % (0-2) Band Neutrophils 0 % (0-8) Platelet Estimate Adequate Platelet Morphology Normal Hypochromasia 1+ Anisocytosis 2+ Schistocytes Occasional Sodium Level 137 MMOL/L (136-145) Potassium Level 4.8 MMOL/L (3.5-5.1) Chloride Level 97 MMOL/L (98-107) Carbon Dioxide Level 26 MMOL/L (21-32) Anion Gap 14 mmol/L (5-15) Blood Urea Nitrogen 58 mg/dL (7-18) Creatinine 9.6 MG/DL (0.55-1.30) Estimat Glomerular Filtration Rate mL/min (>60) Glucose Level 110 MG/DL (74-106) Lactic Acid Level 0.70 mmol/L (0.66-2.22) Calcium Level 9.4 MG/DL (8.5-10.1) Total Bilirubin 0.4 MG/DL (0.2-1.0) Aspartate Amino Transf (AST/SGOT) 25 U/L (15-37) Alanine Aminotransferase (ALT/SGPT) 21 U/L (12-78) Alkaline Phosphatase 113 U/L (46-116) Total Creatine Kinase 114 U/L (26-308) Creatine Kinase MB 4.4 NG/ML (0.0-3.6) Creatine Kinase MB Relative Index 3.8 Troponin I 0.074 ng/mL (0.000-0.056) Total Protein 8.0 G/DL (6.4-8.2) Albumin 4.0 G/DL (3.4-5.0) Globulin 4.0 g/dL Albumin/Globulin Ratio 1.0 (1.0-2.7) Urine Color Pale yellow Urine Appearance Clear Urine pH 8 (4.5-8.0) Urine Specific [place] 1.015 (1.005-1.035) Urine Protein 3+ (NEGATIVE) Urine Glucose (UA) Negative (NEGATIVE) Urine Ketones Negative (NEGATIVE) Urine Occult Blood 2+ (NEGATIVE) Urine Nitrite Negative (NEGATIVE) Urine Bilirubin Negative (NEGATIVE) Urine Urobilinogen Normal MG/DL (0.0-1.0) Urine Leukocyte Esterase Negative (NEGATIVE) Urine RBC 5-10 /HPF (0 - 2) Urine WBC 0-2 /HPF (0 - 2) Urine Squamous Epithelial Cells Occasional /LPF Urine Bacteria Occasional /HPF (NONE) Chest X-Ray Diagnostic Results Chest X-Ray Diagnostic Results : Chest X-Ray Ordered: Yes # of Views/Limited/Complete: 1 View Indication: Shortness of Breath EP Interpretation: Yes Interpretation: no consolidation, no effusion, no pneumothorax, no acute cardiopulmonary disease Impression: No acute disease Electronically Signed by: Electronically signed by Dr. Hector Purcell M.D. Last Vital Signs Date Time Temp Pulse Resp B/P (MAP) Pulse Ox O2 Delivery O2 Flow Rate FiO2 10/10/17 13:23 60 16 Room Air 10/10/17 13:13 97.0 165/66 100 Status: unchanged Disposition: PLACE IN OBSERVATION Condition: Serious Hector Purcell Oct 10, 2017 13:38
[2017-10-10] MEDS ORDERED: PANTOPRAZOLE SO40 MG ORAL (14:16)
[2017-10-10] MEDS ORDERED: HYDRALAZINE HC100 MG ORAL (14:16)
[2017-10-10] MEDS ORDERED: ISOSORBIDE MONO30 M1 PO (14:16)
[2017-10-10 14:21] LABS: MEAN CORPUSCULAR HEMOGLOBIN 27.9 PG (27.0-31.0); MEAN CORPUSCULAR HGB CONC 31.9 G/DL (32.0-36.0); MEAN CORPUSCULAR VOLUME 88 FL (80-99); MEAN PLATELET VOLUME 6.9 FL (6.5-10.1); PLATELET COUNT 280 K/UL (150-450); RED BLOOD COUNT 3.85 M/UL (4.20-5.40); RED CELL DISTRIBUTION WIDTH 24.1 % (11.6-14.8)
[2017-10-10 14:29] LABS: ANION GAP 14 mmol/L (5-15); CALCIUM 9.4 MG/DL (8.5-10.1); CARBON DIOXIDE 26 MMOL/L (21-32); CHLORIDE 97 MMOL/L (98-107); CREATININE 9.6 MG/DL (0.55-1.30); POTASSIUM 4.8 MMOL/L (3.5-5.1); SODIUM 137 MMOL/L (136-145)
--- NOTE | 2017-10-10 14:34 | Diagnostic Imaging Report ---
Indications: Altered mental status Technique: Spiral acquisitions obtained through the brain. Angled axial and coronal 5 x 5 mm slices were reconstructed. Total dose length product 1464 mGycm. CTDI vol(s) 70 mGy. Dose reduction achieved using automated exposure control Comparison: 05/19/2013 Findings: Old bilateral basal ganglia lacunar infarcts are again demonstrated. Again demonstrated is age-related enlargement of ventricles and extra-axial CSF spaces. Again demonstrated is periventricular deep white matter low-attenuation consistent with chronic ischemic change. The orbits are unremarkable. The sinuses are clear except for minimal posterior ethmoid mucosal disease. Extensive falx ossification is again demonstrated. There are is bilateral right greater than left mastoid opacification which is a new finding. Impression: Chronic and age-related changes, as described. 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
[2017-10-10 14:37] LABS: ANISOCYTOSIS 2+; BAND NEUTROPHILS % (MANUAL) 0 % (0-8); BASOPHILS % (MANUAL) 0 % (0-2); EOSINOPHILS % (MANUAL) 0 % (0-3); HYPOCHROMASIA 1+; LYMPHOCYTES % (MANUAL) 3 % (20-45); NEUTROPHILS % (MANUAL) 92 % (45-75); PLATELET ESTIMATE ADEQUATE; PLATELET MORPHOLOGY NORMAL; TOTAL CELLS COUNTED 100
[2017-10-10 14:38] LABS: SCHISTOCYTES OCCASIONAL
[2017-10-10 14:43] LABS: ALANINE AMINOTRANSFERASE 21 U/L (12-78); ASPARTATE AMINO TRANSFERASE 25 U/L (15-37); CKMB 4.4 NG/ML (0.0-3.6)
[2017-10-10] MEDS ORDERED: cefTRIAXone 1 GM in NS 55 ML IVPB ONE (15:00)
[2017-10-10 15:12] VITALS: BP_SYST 116; BP_SYST 166; BP_DIAS 51; BP_DIAS 75
--- NOTE | 2017-10-10 15:14 | Diagnostic Imaging Report ---
Indication: SOB, chest Technique: One view of the chest Comparison: 11/25/2016 Findings: The heart is enlarged. Aorta is tortuous and calcified. There is equivocal minimal interstitial congestion now present. The pleural spaces are clear Impression: Cardiomegaly Equivocal minimal interstitial congestion. Correlate with clinical findings
[2017-10-10 16:14] LABS: APPEARANCE,URINE CLEAR; KETONES,URINE NEGATIVE (NEGATIVE); LEUKOCYTE ESTERASE ,URINE NEGATIVE (NEGATIVE); NITRITE,URINE NEGATIVE (NEGATIVE); PH,URINE 8 (4.5-8.0); PROTEIN,URINE 3+ (NEGATIVE); UROBILINOGEN,URINE NORMAL MG/DL (0.0-1.0)
[2017-10-10 16:20] VITALS: BP 159/65
[2017-10-10 16:26] LABS: BACTERIA,URINE OCCASIONAL /HPF; SQUAMOUS EPITHELIAL CELL,UR OCCASIONAL /LPF (NONE/OCC); WBC,URINE 0-2 /HPF (0 - 2)
[2017-10-10] MEDS ORDERED: D5NS 1,000 ML IV SCH (17:45)
[2017-10-10 20:00] VITALS: BP 162/61
[2017-10-10] MEDS: HydrALAZINE 50mg tab ORAL SCH (21:39)
[2017-10-10] MEDS: Furosemide 80mg tab ORAL SCH (21:39)
[2017-10-10] MEDS: Atorvastatin 80mg tab ORAL SCH (21:39)
[2017-10-10] MEDS: Heparin 5000 units/ml inj SUBQ SCH (21:40)
[2017-10-11] VITALS: BP 147/68
[2017-10-11] MEDS ORDERED: Vancomycin 1gm inj IVPB ONE (00:52)
[2017-10-11] MEDS ORDERED: Vancomycin 1 GM in D5W 275 ML IVPB ONE (01:00)
--- NOTE | 2017-10-11 01:30 | Consultation ---
DATE OF CONSULTATION: 10/10/2017 CARDIOLOGY CONSULTATION REQUESTING PHYSICIAN: Carlos Rodriguez M.D. REASON FOR CONSULTATION: Altered mentation and abnormal EKG. HISTORY OF PRESENT ILLNESS: This is a 77-year-old female with end-stage renal disease, on hemodialysis three times a week. She was notably confused according to her daughter for the past day. She was supposed to go to dialysis today, but missed it. EMS was contacted and her sugar in the field with less than 20. The patient was given D50 and brought to the emergency room. Additional concerns were raised over her complaints of shortness of breath, abnormal EKG and her multiple comorbidities prompting hospitalization. The patient was hospitalized about a month ago at [facility] with acute coronary syndrome following revision of the dialysis graft. She underwent cardiac catheterization ultimately and was noted to have a very calcified small coronary artery stent, were not amenable to any intervention. Medical management followed. She suffered a non-ST elevation infarction at that time. PAST MEDICAL HISTORY: Coronary artery disease, history of myocardial infarction, hypertensive heart disease with history of malignant blood pressure, type 2 diabetes mellitus, end-stage renal disease, peripheral artery disease, history of percutaneous transluminal angioplasty of the lower extremity and diabetic neuropathy. MEDICATIONS: Prior to admission, reviewed and reconciled. ALLERGIES: None. FAMILY HISTORY: Noncontributory. SOCIAL HISTORY: Negative for smoking, alcohol, or substance abuse. REVIEW OF SYSTEMS: No fevers or chills. No cough or sputum production. No history of blood clots in the legs. No history of seizure or stroke. Her diabetes is managed with oral therapy and at this time this insulin. She has been on anti-lipid drugs. There is no history of thyroid disorder. She has not had any change in bowel habits. She is on dialysis three times a week. There is no history of asthma. PHYSICAL EXAMINATION: GENERAL: Thin and frail, alert, but somewhat withdrawn. VITAL SIGNS: Blood pressure 165/66, pulse 60, respirations 16, afebrile and oxygen saturation room air 100%. Conjunctivae are pink. Sclerae are anicteric. Arcus senilis. Oropharynx clear. Mucous membranes moist. NECK: Supple. Jugular venous pressure grossly normal. LUNGS: With clear breath sounds. CARDIAC: Regular rhythm and rate. Normal S1 and S2. Fourth heart sound. ABDOMEN: Soft and nontender. EXTREMITIES: No edema. NEUROLOGIC: Reveals delayed response time. No focalities. LABORATORY AND DIAGNOSTIC DATA: EKG with sinus rhythm and anterolateral T-wave changes and noted for left ventricular hypertrophy. White count 16 and hemoglobin 10.8. Troponin 0.074. Potassium 4.8. IMPRESSION: 1. Hypoglycemia. 2. Metabolic encephalopathy. 3. Chronic ischemic heart disease. 4. Possible acute myocardial infarction. 5. Hypertensive heart disease. 6. End-stage renal disease. 7. Leukocytosis, rule out sepsis. PLAN: 1. Cardiac monitoring. Serial troponin. 2. Titrate antihypertensive and continue anti-platelet and anti-lipid drugs. 3. Evaluate further for source of infection. 4. Maximize antianginal regimen. Abraham Wren M.D. DR: KARRIE JOB#: [id number] CC:
[2017-10-11 04:00] VITALS: BP 128/45
--- NOTE | 2017-10-11 05:30 | Consultation ---
DATE OF CONSULTATION: 10/10/2017 NEPHROLOGY CONSULTATION CONSULTING PHYSICIAN: Herman Hamm M.D. REFERRING PHYSICIAN: Carlos Rodriguez M.D. REASON FOR CONSULTATION: End-stage renal disease. HISTORY OF PRESENT ILLNESS: The patient presented through the emergency room, apparently had a hypoglycemic episode at home and she is admitted for further evaluation and treatment. She recently was admitted to [facility] for fistulogram of right arm for right arm swelling over the site of the dialysis fistula. During that admission, she developed congestive heart failure and acute non-ST elevation myocardial infarction, had cardiac catheterization showing small calcified vessels and medical management was recommended. Since that time, she is on dialysis. She has a history of malignant hypertension, insulin-dependent diabetes, and peripheral vascular disease. PAST SURGICAL HISTORY: Tubal , vascular surgery with left axillary femoral bypass, section, cataracts in both eyes, and AV fistula of right arm. ALLERGIES: No definite allergies, but she has intolerance from morphine with lethargy. MEDICATIONS: Reviewed on the computer. HABITS: She is a nondrinker and nonsmoker. No use of illicit drugs. She lives with extended family. SYSTEM REVIEW: HEAD, EYES, EARS, NOSE AND THROAT: There is a history of glaucoma with stable vision. Hearing is good. ENDOCRINE: Long-standing diabetes, generally well controlled. No thyroid disease. PULMONARY: No asthma or TB. CARDIAC: History of congestive heart failure and history of malignant hypertension requiring multiple medications. Recently, we needed to reduce her blood pressure medicines as she had hypotension. GASTROINTESTINAL: No GI bleeding or chronic abdominal pain. GENITOURINARY: No dysuria or hematuria. She has had several UTIs in the past. NEUROLOGIC: No CVA or seizures. MUSCULOSKELETAL: No major arthritis. PHYSICAL EXAMINATION: GENERAL: The patient was seen lying in the emergency department. VITAL SIGNS: Temperature 97.8, pulse 63, respirations 19, and blood pressure 159/65. HEAD, EYES, EARS, NOSE, AND THROAT: Sclerae are nonicteric. Ocular motions intact in all directions. Oral mucosa is moist. NECK: No adenopathy or thyroid enlargement. LUNGS: Clear. HEART: Regular rhythm. No murmur. ABDOMEN: Soft. No organomegaly or masses. EXTREMITIES: No edema, cyanosis, or clubbing. There is an AV fistula in the right arm without inflammation. NEUROLOGIC: She is alert and oriented. Cranial nerves are intact. No focal weakness. LABORATORY DATA: Pertinent labs show white count of 16,000 and hemoglobin 10.8. Sodium 137, potassium 4.8, BUN 58, creatinine 9.6, and glucose is 110. Troponin is 0.074. IMPRESSION: 1. End-stage renal disease. 2. Hypoglycemic episode. 3. Insulin-dependent diabetes. 4. Troponin leak, likely from chronic ischemic cardiomyopathy. 5. History of recent non-ST elevation myocardial infarction. PLAN: In view of leukocytosis, she has been cultured and started on ceftriaxone. We will watch her for any cardiac or complications of renal disease. Dialysis has been scheduled. Herman Hamm M.D. DR: SANDRA JOB#: [id number] CC:
[2017-10-11 08:00] VITALS: BP 141/70
--- NOTE | 2017-10-11 09:10 | Nephrology Progress Note ---
Assessment/Plan Problem List: (1) Subclavian vein obstruction (2) DM circ dis type I (3) Hypoglycemia (4) End-stage renal disease (5) Coronary artery disease Assessment hd 10/11, vasc eval L subclavian stenosis likely Subjective Constitutional: Reports: weakness HEENT: Reports: no symptoms Genitourinary: Reports: no symptoms Neurologic/Psychiatric: Reports: no symptoms Subjective L arm very swollen Objective Objective Last 24 Hour Vital Signs Date Time Temp Pulse Resp B/P (MAP) Pulse Ox O2 Delivery O2 Flow Rate FiO2 10/11/17 08:00 97.6 56 20 141/70 97 Room Air 10/11/17 04:00 49 10/11/17 04:00 97.2 51 20 128/45 99 Room Air 10/11/17 00:00 96.8 52 20 147/68 97 Room Air 10/11/17 00:00 46 10/10/17 21:40 62 162/61 10/10/17 21:39 162/61 10/10/17 21:39 62 162/61 10/10/17 20:00 48 10/10/17 20:00 95.4 62 21 162/61 98 Room Air 10/10/17 16:20 97.8 63 19 159/65 Room Air 10/10/17 15:51 64 16 166/51 98 Room Air 10/10/17 15:12 64 18 166/75 100 Room Air 10/10/17 13:23 60 16 Room Air 10/10/17 13:13 97.0 60 16 165/66 100 Room Air Laboratory Tests 10/10/17 13:40: White Blood Count 16.0H, Red Blood Count 3.85L, Hemoglobin 10.8L, Hematocrit 33.7L, Mean Corpuscular Volume 88, Mean Corpuscular Hemoglobin 27.9, Mean Corpuscular Hemoglobin Concent 31.9L, Red Cell Distribution Width 24.1H, Platelet Count 280, Mean Platelet Volume 6.9, Neutrophils (%) (Auto) , Lymphocytes (%) (Auto) , Monocytes (%) (Auto) , Eosinophils (%) (Auto) , Basophils (%) (Auto) , Differential Total Cells Counted 100, Neutrophils % ( Manual) 92H, Lymphocytes % (Manual) 3L, Monocytes % (Manual) 5, Eosinophils % ( Manual) 0, Basophils % (Manual) 0, Band Neutrophils 0, Platelet Estimate Adequate, Platelet Morphology Normal, Hypochromasia 1+, Anisocytosis 2+, Schistocytes Occasional, Sodium Level 137, Potassium Level 4.8, Chloride Level 97L, Carbon Dioxide Level 26, Anion Gap 14, Blood Urea Nitrogen 58H, Creatinine 9.6H, Estimat Glomerular Filtration Rate , Glucose Level 110H, Lactic Acid Level 0.70, Calcium Level 9.4, Total Bilirubin 0.4, Aspartate Amino Transf (AST/ SGOT) 25, Alanine Aminotransferase (ALT/SGPT) 21, Alkaline Phosphatase 113, Total Creatine Kinase 114, Creatine Kinase MB 4.4H, Creatine Kinase MB Relative Index 3.8, Troponin I 0.074H, Total Protein 8.0, Albumin 4.0, Globulin 4.0, Albumin/Globulin Ratio 1.0 10/10/17 15:45: Urine Color Pale yellow, Urine Appearance Clear, Urine pH 8, Urine Specific Tranquillity 1.015, Urine Protein 3+H, Urine Glucose (UA) Negative, Urine Ketones Negative, Urine Occult Blood 2+H, Urine Nitrite Negative, Urine Bilirubin Negative, Urine Urobilinogen Normal, Urine Leukocyte Esterase Negative, Urine RBC 5-10H, Urine WBC 0-2, Urine Squamous Epithelial Cells Occasional, Urine Bacteria Occasional Height (Feet): 5 Height (Inches): 1.00 Weight (Pounds): 132 General Appearance: no apparent distress, alert EENT: normal ENT inspection Neck: non-tender Cardiovascular: normal rate, regular rhythm Respiratory/Chest: lungs clear Abdomen: non tender Extremities: other - L arm vaery swollen Neurologic: outpatient surgery rn II-XII grossly normal LAILA GRAMAJO Oct 11, 2017 09:10
[2017-10-11 12:00] VITALS: BP 154/52
[2017-10-11] MEDS: Aspirin EC 81mg tab ORAL SCH (13:49)
[2017-10-11] MEDS: Nephrovite tab (Rena-Vite) ORAL SCH (13:50)
[2017-10-11] MEDS: Furosemide 80mg tab ORAL SCH ×2 (13:50→22:35)
[2017-10-11] MEDS: HydrALAZINE 50mg tab ORAL SCH ×2 (13:50→17:21)
[2017-10-11] MEDS: Heparin 5000 units/ml inj SUBQ SCH ×2 (13:55→21:00)
[2017-10-11] MEDS: Imdur 30mg tab ORAL SCH (14:08)
[2017-10-11] MEDS: Losartan 50mg tab ORAL SCH (14:08)
--- NOTE | 2017-10-11 15:41 | Cardiology Report ---
APPROVED REPORT EKG Measurement Heart [id number] Sinus bradycardia T wave abnormality, consider inferior ischemia T wave abnormality, consider anterolateral ischemia Prolonged QT Abnormal ECG
--- NOTE | 2017-10-11 15:48 | Wound Care Consultation ---
Wound Assessment Wound Assessment : Wound Present on Admission: No New Wound: Yes Status Change of Wound: No Wound Location Body Site Modif: left Wound Location Body Site: arm Wound Type: blister - open Kate Test: Does not Kate Wound Thickness: Partial Thickness Percent of Wound [place]/Red: 100 Wound Drainage Description: Serosanguineous Wound Drainage Amount: Scant Wound Drainage Odor: None/Absent Tissue Surrounding Wound: Intact Wound General Appearance: Reddened Wound Comment #1 Open blisters on left arm Recommendation -Keep clean and dry -Local wound care for denuded blister per protocol -Assess and f/u accordingly for any changes ROSSI MCKINNON RN Oct 11, 2017 15:48
[2017-10-11 16:00] VITALS: BP 142/54
--- NOTE | 2017-10-11 16:00 | History and Physical Report ---
DATE OF ADMISSION: 10/10/2017 CHIEF COMPLAINT: Hypoglycemia. HISTORY OF PRESENT ILLNESS: The patient is a pleasant 77-year-old female. She has a history of end-stage renal disease, ischemic cardiomyopathy, hypertension, and diabetes. She presented to the emergency room with complaints of altered mental status. The patient apparently was noted to be confused by family members. She had missed her dialysis session. On evaluation in the emergency room, the patient was noted to be hypoglycemic. She has nonspecific shortness of breath as well as chest pain. According to the patient, she has been compliant with her medications. She states that she has been eating well. The patient is now admitted for further evaluation and care. PAST MEDICAL HISTORY: As above. History of PTCA, history of diabetic neuropathy, and history of peripheral artery disease. PAST SURGICAL HISTORY: As above. CURRENT MEDICATIONS: Reconciled and reviewed. ALLERGIES: None. SOCIAL HISTORY: There is no known history of tobacco, ethanol, or drugs. FAMILY HISTORY: None. REVIEW OF SYSTEMS: GENERAL: Positive malaise and weakness. HEENT: No headaches or visual changes. CARDIOPULMONARY: Positive chest pain and shortness of breath. GASTROINTESTINAL: No nausea or vomiting. GENITOURINARY: No urgency or frequency. MUSCULOSKELETAL: No dependent swelling. No evidence of seizures. PHYSICAL EXAMINATION: VITAL SIGNS: Temperature 97.6 degrees, pulse 56, respirations 20, and blood pressure 141/70. GENERAL: The patient is well-developed female, in no apparent distress. HEART: Regular rate and rhythm. LUNGS: Clear. ABDOMEN: Soft, nontender, and nondistended. EXTREMITIES: Without clubbing, cyanosis, or edema. LABORATORY DATA: White count was 16,000 and hemoglobin 10. Sodium 137 and potassium 4.8. Troponin 0.074. Creatinine was 9.6. Urine showed 5 to 10 RBCs. ASSESSMENT: This is a pleasant female admitted with complaints of hypoglycemia. 1. Hypoglycemia. 2. Diabetes. 3. History of ischemic cardiomyopathy. 4. History of congestive heart failure. 5. End-stage renal disease. PLAN: Monitor Accu-Cheks. We will continue IV fluids with dextrose. Hold diabetic medications until blood sugars stable. Cardiology and Renal consultations will be obtained. Repeat CBC. Follow up urine cultures. Carlos Rodriguez M.D. DR: Arturo JOB#: [id number] CC:
[2017-10-11 20:00] VITALS: BP 138/52
[2017-10-11 21:52] LABS: BASOPHILS % (AUTO) 2.2 % (0.0-2.0); LYMPHOCYTES % (AUTO) 26.9 % (20.0-45.0); MEAN CORPUSCULAR HEMOGLOBIN 26.5 PG (27.0-31.0); MEAN CORPUSCULAR HGB CONC 29.9 G/DL (32.0-36.0); MEAN CORPUSCULAR VOLUME 88 FL (80-99); MEAN PLATELET VOLUME 7.4 FL (6.5-10.1); MONOCYTES % (AUTO) 10.8 % (1.0-10.0); PLATELET COUNT 276 K/UL (150-450); RED BLOOD COUNT 3.78 M/UL (4.20-5.40); RED CELL DISTRIBUTION WIDTH 23.9 % (11.6-14.8); WHITE BLOOD COUNT 7.6 K/UL (4.8-10.8)
[2017-10-11] MEDS ORDERED: Heparin Sod 1000 units/ml 10ml IV ONE (22:00)
[2017-10-11 22:14] LABS: ANION GAP 9 mmol/L (5-15); CALCIUM 8.6 MG/DL (8.5-10.1); CARBON DIOXIDE 29 MMOL/L (21-32); CHLORIDE 93 MMOL/L (98-107); CREATININE 6.6 MG/DL (0.55-1.30); POTASSIUM 4.9 MMOL/L (3.5-5.1); SODIUM 131 MMOL/L (136-145)
[2017-10-11] MEDS: Atorvastatin 80mg tab ORAL SCH (22:35)
[2017-10-12] VITALS (11 sets, daily range): BP systolic 120–190; BP diastolic 51–80
--- NOTE | 2017-10-12 03:00 | Progress Note ---
DATE: 10/11/2017 CARDIOLOGY PROGRESS NOTE SUBJECTIVE: The patient complains of swelling of her left arm. She denies trauma. She denies chest pain and shortness of breath. Her weakness is slightly better, but she is still not at baseline with regard to energy or activity or capacity. OBJECTIVE: VITAL SIGNS: Blood pressure is 128/45 to 162/61, heart rate 49 to 62, respiratory rate 21, and afebrile. Monitor, sinus and sinus bradycardia. NECK: Supple. LUNGS: Clear. CARDIAC: Regular rhythm and rate. Normal S1 and S2 with a fourth heart sound. A 1/6 early systolic apical murmur. ABDOMEN: Soft and nontender. EXTREMITIES: Notable for 1 to 2+ edema of the left upper extremity. Palpable bruit over right AV graft. LABORATORY DATA: Troponin level #1 was 0.074 and #2 was 0.065. Pro-natriuretic peptide is 54,210. IMPRESSION: 1. Left upper extremity swelling suggestive of left subclavian stenosis. Other considerations would be deep venous thrombosis. 2. Insulin-requiring diabetes mellitus with multiple complications. 3. End-stage renal disease. 4. Diffuse coronary artery disease with calcified vessels, not amenable to intervention. 5. History of malignant hypertension. 6. Peripheral artery disease with prior history of lower extremity revascularization. 7. Non-ST elevation myocardial infarction. 8. Acute on chronic diastolic congestive heart failure. PLAN: 1. Vascular evaluation regarding left upper extremity. 2. Venous Duplex plan. 3. Titrate antianginal and antihypertensives. 4. Hemodialysis and ultrafiltration for volume management. 5. Continue anti-lipid and anti-platelet drugs. Abraham Wren M.D. DR: Michael JOB#: [id number] CC:
[2017-10-12] MEDS ORDERED: Heparin Sod 1000 units/ml 10ml IV SCH (06:00)
--- NOTE | 2017-10-12 08:55 | General Progress Note ---
Assessment/Plan Problem List: (1) End-stage renal disease ICD Codes: N18.6 - End-stage renal disease SNOMED: 44325044 (2) DM circ dis type I ICD Codes: E10.59 - DM circ dis type I SNOMED: 82988026 (3) Hypoglycemia ICD Codes: E16.2 - Hypoglycemia, unspecified SNOMED: 544581569 (4) Coronary artery disease ICD Codes: I25.10 - Atherosclerotic heart disease of [place] coronary artery without angina pectoris SNOMED: 76053533 (5) Subclavian vein obstruction ICD Codes: I82.B19 - Acute embolism and thrombosis of unspecified subclavian vein SNOMED: 085716306 Status: stable Assessment/Plan cont to monitor bs fistulogram today HD per renal cardiac rx ?antidepressant Subjective ROS Limited/Unobtainable: No Constitutional: Reports: malaise, weakness HEENT: Reports: no symptoms Cardiovascular: Reports: no symptoms Respiratory: Reports: no symptoms Gastrointestinal/Abdominal: Reports: no symptoms Genitourinary: Reports: no symptoms Neurologic/Psychiatric: Reports: no symptoms Endocrine: Reports: no symptoms Hematologic/Lymphatic: Reports: no symptoms Allergies: Coded Allergies: No Known Allergies (Verified , 10/07/08) All Systems: reviewed and negative except above Subjective all noted. npo for fistulogram. BS stable. no cp.sob Objective Last 24 Hour Vital Signs Date Time Temp Pulse Resp B/P (MAP) Pulse Ox O2 Delivery O2 Flow Rate FiO2 10/12/17 04:00 63 10/12/17 04:00 98.0 67 18 155/71 96 Room Air 10/12/17 00:00 98.0 62 16 151/57 96 Room Air 10/12/17 00:00 64 10/11/17 22:34 71 139/65 10/11/17 22:34 75 139/65 10/11/17 20:00 97.5 65 16 138/52 96 Room Air 10/11/17 20:00 61 10/11/17 17:21 142/54 10/11/17 16:00 97.5 61 21 142/54 96 Room Air 10/11/17 16:00 61 10/11/17 14:08 154/52 10/11/17 14:08 154/52 10/11/17 13:50 154/52 10/11/17 13:50 61 154/52 10/11/17 12:00 60 10/11/17 12:00 97.2 61 20 154/52 95 Room Air 10/11/17 10:07 Room Air Laboratory Tests 10/11/17 09:15: Troponin I 0.065H, Pro-B-Type Natriuretic Peptide [id number], Hepatitis A IgM Antibody Negative, Hepatitis B Surface Antigen Negative, Hepatitis B Core IgM Antibody Negative, Hepatitis C Antibody <0.1 10/11/17 21:45: White Blood Count 7.6#, Red Blood Count 3.78L, Hemoglobin 10.0L, Hematocrit 33.4L, Mean Corpuscular Volume 88, Mean Corpuscular Hemoglobin 26.5L, Mean Corpuscular Hemoglobin Concent 29.9L, Red Cell Distribution Width 23.9H, Platelet Count 276, Mean Platelet Volume 7.4, Neutrophils (%) (Auto) 57.0, Lymphocytes (%) (Auto) 26.9, Monocytes (%) (Auto) 10.8H, Eosinophils (%) (Auto) 3.0, Basophils (%) (Auto) 2.2H, Sodium Level 131L, Potassium Level 4.9, Chloride Level 93L, Carbon Dioxide Level 29, Anion Gap 9, Blood Urea Nitrogen 37H, Creatinine 6.6H, Estimat Glomerular Filtration Rate , Glucose Level 98, Calcium Level 8.6 Height (Feet): 5 Height (Inches): 1.00 Weight (Pounds): 132 General Appearance: WD/WN, alert Neck: supple Cardiovascular: normal rate, regular rhythm Respiratory/Chest: chest wall non-tender, lungs clear, normal breath sounds, no respiratory distress Abdomen: normal bowel sounds, non tender, soft, no organomegaly Neurologic: glass smoother II-XII grossly normal, no motor/sensory deficits, alert, oriented x 3 TIM RAZO Oct 12, 2017 08:55
[2017-10-12] MEDS: Heparin 5000 units/ml inj SUBQ SCH (09:00)
[2017-10-12] MEDS: Imdur 30mg tab ORAL SCH (09:00)
[2017-10-12] MEDS: Losartan 50mg tab ORAL SCH (09:00)
[2017-10-12 09:42] LABS: ANION GAP 11 mmol/L (5-15); CALCIUM 9.3 MG/DL (8.5-10.1); CARBON DIOXIDE 28 MMOL/L (21-32); CHLORIDE 93 MMOL/L (98-107); CREATININE 7.8 MG/DL (0.55-1.30); POTASSIUM 4.7 MMOL/L (3.5-5.1); SODIUM 132 MMOL/L (136-145)
[2017-10-12 09:56] LABS: BASOPHILS % (AUTO) 3.2 % (0.0-2.0); EOSINOPHILS % (AUTO) 2.8 % (0.0-3.0); LYMPHOCYTES % (AUTO) 27.4 % (20.0-45.0); MEAN CORPUSCULAR HGB CONC 32.1 G/DL (32.0-36.0); MEAN CORPUSCULAR VOLUME 87 FL (80-99); MEAN PLATELET VOLUME 7.7 FL (6.5-10.1); MONOCYTES % (AUTO) 11.2 % (1.0-10.0); NEUTROPHILS % (AUTO) 55.3 % (45.0-75.0); PLATELET COUNT 317 K/UL (150-450); RED BLOOD COUNT 4.11 M/UL (4.20-5.40); WHITE BLOOD COUNT 6.8 K/UL (4.8-10.8)
[2017-10-12 12:01] LABS: PROTHROMBIN TIME 10.8 SEC (9.30-11.50)
[2017-10-12] MEDS ORDERED: Lidocaine 1% Plain 30 ml INJ ONE ×2 (13:18→13:45)
[2017-10-12] MEDS ORDERED: Heparin 2000 units/Ns 1000ml 2,000 ML ONE (13:18)
[2017-10-12] MEDS ORDERED: Heparin 2000 units/Ns 1000ml INJ ONE (13:45)
[2017-10-12] MEDS ORDERED: fentaNYL 100 mcg/2 mL IV ONE (14:31)
[2017-10-12] MEDS ORDERED: Midazolam 2mg/2ml Inj ONE (14:31)
--- NOTE | 2017-10-12 14:36 | Pre-Procedure Note/Attestation ---
Pre-Procedure Note/Attestation Complete Prior to Procedure Planned Procedure: left Procedure Narrative: Venogram upper extremity Indications for Procedure Pre-Operative Diagnosis: swelling Attestation I attest that I discussed the nature of the procedure; its benefits; risks and complications; and alternatives (and the risks and benefits of such alternatives ), prior to the procedure, with the patient (or the patient's legal dermatology sales representative). I attest that, if there was a reasonable possibility of needing a blood transfusion, the patient (or the patient's legal dermatology sales representative) was given the [facility] standardized written summary, pursuant to the Otto Harshad Blood Safety Act ([place] Health and Safety Code # 1645, as amended). I attest that I re-evaluated the patient just prior to the surgery and that there has been no change in the patient's H&P, except as documented below: DEVENDRA BARROSO M.D. Oct 12, 2017 14:36
[2017-10-12] MEDS: HydrALAZINE 50mg tab ORAL SCH ×2 (15:13→17:52)
[2017-10-12] MEDS: Nephrovite tab (Rena-Vite) ORAL SCH (16:12)
[2017-10-12] MEDS: Aspirin EC 81mg tab ORAL SCH (16:13)
[2017-10-12] MEDS: Furosemide 80mg tab ORAL SCH (16:13)
--- NOTE | 2017-10-12 16:30 | Diagnostic Imaging Report ---
Indication: Left arm swelling, suspected subclavian venous stenosis Technique: Informed consent obtained prior to commencement of the procedure. Procedure timeout performed. Total sterile technique, including sterile gloves and hand hygiene, hat, mask, sterile gown, large sterile drape, and preparation with 2% chlorhexidine utilized. Multiple attempts made at peripheral venipuncture distal to the elbow in order to evaluate the upstream veins, but these were unsuccessful due to very small caliber of the veins beyond the elbow. The basilic vein above the elbow was successfully cannulated with a 21-gauge micropuncture needle, passage 0.018 guidewire, exchange for 4 Moroccan micropuncture introducer. This was used to perform multistation venography. After review of the images, catheters removed, pressure held until hemostasis achieved. The patient tolerated the procedure well, without immediate complication. Total fluoroscopy time 1.1 minutes. Total dose area product 18 dGycm2 Comparison: None Findings: Some nonsignificant narrowing of the left axillary vein is noted, presumably due to the tourniquet which was left in situ in hopes of refluxing into the cephalic and brachial veins no collateral formation is demonstrated. No evidence of significant central venous stenosis is demonstrated. The central axillary, subclavian, brachiocephalic veins and superior vena cava are all widely patent, and flow is brisk through these Impression: Negative for evidence of significant left upper extremity central venous stenosis or occlusive disease Note inability to evaluate the peripheral veins or cephalic venous system. Nonetheless, the excellent flow through the brachiobasilic and central system makes venous insufficiency an unlikely etiology of the clinical arm swelling
--- NOTE | 2017-10-12 17:55 | Nephrology Progress Note ---
Assessment/Plan Problem List: (1) Subclavian vein obstruction (2) DM circ dis type I (3) Hypoglycemia (4) End-stage renal disease (5) Coronary artery disease Assessment hd 10/11, vasc eval , venogram negative, weak tonight and some nausea, symptomatic care Subjective Constitutional: Reports: weakness HEENT: Reports: no symptoms Genitourinary: Reports: no symptoms Neurologic/Psychiatric: Reports: no symptoms Subjective L arm swollen Objective Objective Last 24 Hour Vital Signs Date Time Temp Pulse Resp B/P (MAP) Pulse Ox O2 Delivery O2 Flow Rate FiO2 10/12/17 16:13 69 120/70 10/12/17 15:10 69 15 120/70 100 Nasal Cannula 2.0 10/12/17 15:05 68 15 143/51 100 Nasal Cannula 2.0 10/12/17 15:00 75 15 143/51 100 Nasal Cannula 2.0 10/12/17 14:55 70 15 156/56 100 Nasal Cannula 2.0 10/12/17 14:50 65 16 153/57 100 Nasal Cannula 2.0 10/12/17 13:33 68 14 2.0 10/12/17 12:00 98.0 65 20 162/64 99 Room Air 10/12/17 12:00 66 10/12/17 08:00 98.0 67 18 155/71 96 Room Air 10/12/17 08:00 63 10/12/17 04:00 63 10/12/17 04:00 98.0 67 18 155/71 96 Room Air 10/12/17 00:00 98.0 62 16 151/57 96 Room Air 10/12/17 00:00 64 10/11/17 22:34 71 139/65 10/11/17 22:34 75 139/65 10/11/17 20:00 97.5 65 16 138/52 96 Room Air 10/11/17 20:00 61 Laboratory Tests 10/11/17 21:45: White Blood Count 7.6#, Red Blood Count 3.78L, Hemoglobin 10.0L, Hematocrit 33.4L, Mean Corpuscular Volume 88, Mean Corpuscular Hemoglobin 26.5L, Mean Corpuscular Hemoglobin Concent 29.9L, Red Cell Distribution Width 23.9H, Platelet Count 276, Mean Platelet Volume 7.4, Neutrophils (%) (Auto) 57.0, Lymphocytes (%) (Auto) 26.9, Monocytes (%) (Auto) 10.8H, Eosinophils (%) (Auto) 3.0, Basophils (%) (Auto) 2.2H, Sodium Level 131L, Potassium Level 4.9, Chloride Level 93L, Carbon Dioxide Level 29, Anion Gap 9, Blood Urea Nitrogen 37H, Creatinine 6.6H, Estimat Glomerular Filtration Rate , Glucose Level 98, Calcium Level 8.6 10/12/17 09:00: White Blood Count 6.8, Red Blood Count 4.11L, Hemoglobin 11.5L, Hematocrit 35.9L , Mean Corpuscular Volume 87, Mean Corpuscular Hemoglobin 28.0, Mean Corpuscular Hemoglobin Concent 32.1, Red Cell Distribution Width 23.0H, Platelet Count 317, Mean Platelet Volume 7.7, Neutrophils (%) (Auto) 55.3, Lymphocytes (%) (Auto) 27.4, Monocytes (%) (Auto) 11.2H, Eosinophils (%) (Auto) 2.8, Basophils (%) (Auto) 3.2H, Sodium Level 132L, Potassium Level 4.7, Chloride Level 93L, Carbon Dioxide Level 28, Anion Gap 11, Blood Urea Nitrogen 41H, Creatinine 7.8H, Estimat Glomerular Filtration Rate , Glucose Level 104, Calcium Level 9.3, Prothrombin Time 10.8, Prothromb Time International Ratio 1.0 , Activated Partial Thromboplast Time 29 Height (Feet): 5 Height (Inches): 1.00 Weight (Pounds): 132 General Appearance: alert EENT: normal ENT inspection Neck: normal alignment, supple Cardiovascular: normal rate, regular rhythm Respiratory/Chest: lungs clear Abdomen: non tender, soft, no organomegaly Extremities: other - L arm edema Neurologic: larry operator II-XII grossly normal LAILA GRAMAJO Oct 12, 2017 17:55
[2017-10-13] VITALS: BP 168/67
[2017-10-13] MEDS: Epogen (for ESRD on dialysis) SUBQ SCH (00:22)
[2017-10-13] MEDS: Furosemide 80mg tab ORAL SCH ×3 (00:24→21:35)
[2017-10-13] MEDS: Heparin 5000 units/ml inj SUBQ SCH ×3 (00:24→21:37)
[2017-10-13] MEDS: Atorvastatin 80mg tab ORAL SCH ×2 (00:25→21:35)
--- NOTE | 2017-10-13 03:30 | Progress Note ---
DATE: 10/12/2017 CARDIOLOGY PROGRESS NOTE SUBJECTIVE: The patient still has swelling of her left arm. She is having nausea and weakness. No chest pain or shortness of breath. OBJECTIVE: VITAL SIGNS: Blood pressure 120/70, pulse 61, and respirations 15. Mild edema, left upper extremity. NECK: Supple. LUNGS: Clear. ABDOMEN: Soft. EXTREMITIES: No edema. DIAGNOSTIC DATA: Venogram is negative. IMPRESSION: 1. Left upper extremity edema, likely due to mild vascular insufficiency. 2. End-stage renal disease. 3. Ischemic cardiomyopathy. 4. Chronic ischemic heart disease. 5. Insulin-requiring diabetes mellitus. 6. Peripheral artery disease. 7. History of malignant range hypertension. PLAN: 1. Hemodialysis with ultrafiltration. 2. Antiemetics. 3. Titrate antihypertensives. 4. Vascular evaluation. 5. Antianginal regimen. 6. Recent catheterization revealed vessels not amenable to any intervention. Abraham Wren M.D. DR: PRIYANKA JOB#: [id number] CC:
[2017-10-13 04:18] VITALS: BP 170/71
--- NOTE | 2017-10-13 07:36 | General Progress Note ---
Assessment/Plan Problem List: (1) End-stage renal disease ICD Codes: N18.6 - End-stage renal disease SNOMED: 09380164 (2) DM circ dis type I ICD Codes: E10.59 - DM circ dis type I SNOMED: 93629266 (3) Hypoglycemia ICD Codes: E16.2 - Hypoglycemia, unspecified SNOMED: 516386395 (4) Coronary artery disease ICD Codes: I25.10 - Atherosclerotic heart disease of [place] coronary artery without angina pectoris SNOMED: 72929367 (5) Subclavian vein obstruction ICD Codes: I82.B19 - Acute embolism and thrombosis of unspecified subclavian vein SNOMED: 778622482 Status: stable, progressing Assessment/Plan monitor bs HD per renal pt/ot eval trial lexapro dc planning if BS stable Subjective ROS Limited/Unobtainable: No Constitutional: Reports: malaise, weakness HEENT: Reports: no symptoms Cardiovascular: Reports: no symptoms Respiratory: Reports: no symptoms Gastrointestinal/Abdominal: Reports: poor appetite Genitourinary: Reports: no symptoms Neurologic/Psychiatric: Reports: no symptoms, pre-existing deficit Endocrine: Reports: no symptoms Hematologic/Lymphatic: Reports: no symptoms Allergies: Coded Allergies: No Known Allergies (Verified , 10/07/08) All Systems: reviewed and negative except above Subjective fistulogram negative. blood sugars still trending on the low side. ?depressed. Objective Last 24 Hour Vital Signs Date Time Temp Pulse Resp B/P (MAP) Pulse Ox O2 Delivery O2 Flow Rate FiO2 10/13/17 04:18 97.7 80 18 170/71 97 Room Air 10/13/17 04:00 74 10/13/17 00:25 168 69/77 10/13/17 00:25 168 69/77 10/13/17 00:00 98.0 77 18 168/67 95 Room Air 10/13/17 00:00 74 10/12/17 22:36 Room Air 10/12/17 20:00 98.1 67 18 190/70 95 Room Air 10/12/17 20:00 67 10/12/17 16:13 69 120/70 10/12/17 16:00 75 10/12/17 15:10 69 15 120/70 100 Nasal Cannula 2.0 10/12/17 15:05 68 15 143/51 100 Nasal Cannula 2.0 10/12/17 15:00 75 15 143/51 100 Nasal Cannula 2.0 10/12/17 14:55 70 15 156/56 100 Nasal Cannula 2.0 10/12/17 14:50 65 16 153/57 100 Nasal Cannula 2.0 10/12/17 13:33 68 14 2.0 10/12/17 12:00 98.0 65 20 162/64 99 Room Air 10/12/17 12:00 66 10/12/17 08:00 98.0 67 18 155/71 96 Room Air 10/12/17 08:00 63 Laboratory Tests 10/12/17 09:00: White Blood Count 6.8, Red Blood Count 4.11L, Hemoglobin 11.5L, Hematocrit 35.9L , Mean Corpuscular Volume 87, Mean Corpuscular Hemoglobin 28.0, Mean Corpuscular Hemoglobin Concent 32.1, Red Cell Distribution Width 23.0H, Platelet Count 317, Mean Platelet Volume 7.7, Neutrophils (%) (Auto) 55.3, Lymphocytes (%) (Auto) 27.4, Monocytes (%) (Auto) 11.2H, Eosinophils (%) (Auto) 2.8, Basophils (%) (Auto) 3.2H, Prothrombin Time 10.8, Prothromb Time International Ratio 1.0, Activated Partial Thromboplast Time 29, Sodium Level 132L, Potassium Level 4.7, Chloride Level 93L, Carbon Dioxide Level 28, Anion Gap 11, Blood Urea Nitrogen 41H, Creatinine 7.8H, Estimat Glomerular Filtration Rate , Glucose Level 104, Calcium Level 9.3 10/13/17 05:40: Random Vancomycin Level [Pending] Height (Feet): 5 Height (Inches): 1.00 Weight (Pounds): 132 General Appearance: WD/WN, alert Neck: supple Cardiovascular: normal peripheral pulses, normal rate, regular rhythm Respiratory/Chest: chest wall non-tender, lungs clear, normal breath sounds Abdomen: normal bowel sounds, non tender, soft, no organomegaly Edema: no edema noted Arm (L), no edema noted Arm (R), no edema noted Leg (L), no edema noted Leg (R), no edema noted Pedal (L), no edema noted Pedal (R), no edema noted Generalized TIM RAZO Oct 13, 2017 07:36
[2017-10-13 08:00] VITALS: BP 163/73
[2017-10-13] MEDS ORDERED: Vancomycin 1gm/D5W 275ml IVPB ONE ×2 (09:00)
[2017-10-13] MEDS: HydrALAZINE 50mg tab ORAL SCH ×2 (09:56→17:06)
[2017-10-13] MEDS: Imdur 30mg tab ORAL SCH (09:58)
[2017-10-13] MEDS: Aspirin EC 81mg tab ORAL SCH (09:58)
[2017-10-13] MEDS: Losartan 50mg tab ORAL SCH (09:58)
[2017-10-13] MEDS: Nephrovite tab (Rena-Vite) ORAL SCH (09:59)
--- NOTE | 2017-10-13 10:12 | Nephrology Progress Note ---
Assessment/Plan Problem List: (1) Subclavian vein obstruction (2) DM circ dis type I (3) Hypoglycemia (4) End-stage renal disease (5) Coronary artery disease Assessment hd 10/11+10/12, vasc eval , venogram negative, weak and some nausea better now, symptomatic care Subjective Constitutional: Reports: weakness HEENT: Reports: no symptoms Genitourinary: Reports: no symptoms Neurologic/Psychiatric: Reports: no symptoms Subjective L arm swollen no nausea today Objective Objective Last 24 Hour Vital Signs Date Time Temp Pulse Resp B/P (MAP) Pulse Ox O2 Delivery O2 Flow Rate FiO2 10/13/17 09:59 111 163/73 10/13/17 09:58 163/73 10/13/17 09:58 163/73 10/13/17 09:57 111 161/68 10/13/17 09:56 161/68 10/13/17 08:00 97.9 65 21 163/73 98 Room Air 10/13/17 04:18 97.7 80 18 170/71 97 Room Air 10/13/17 04:00 74 10/13/17 00:25 168 69/77 10/13/17 00:25 168 69/77 10/13/17 00:00 98.0 77 18 168/67 95 Room Air 10/13/17 00:00 74 10/12/17 22:36 Room Air 10/12/17 20:00 98.1 67 18 190/70 95 Room Air 10/12/17 20:00 67 10/12/17 16:13 69 120/70 10/12/17 16:00 75 10/12/17 15:10 69 15 120/70 100 Nasal Cannula 2.0 10/12/17 15:05 68 15 143/51 100 Nasal Cannula 2.0 10/12/17 15:00 75 15 143/51 100 Nasal Cannula 2.0 10/12/17 14:55 70 15 156/56 100 Nasal Cannula 2.0 10/12/17 14:50 65 16 153/57 100 Nasal Cannula 2.0 10/12/17 13:33 68 14 2.0 10/12/17 12:00 98.0 65 20 162/64 99 Room Air 10/12/17 12:00 66 Laboratory Tests 10/13/17 05:40: Random Vancomycin Level 11.6 Height (Feet): 5 Height (Inches): 1.00 Weight (Pounds): 132 General Appearance: no apparent distress, alert EENT: normal ENT inspection Neck: normal alignment Cardiovascular: normal rate, regular rhythm Respiratory/Chest: lungs clear Abdomen: non tender, soft Extremities: other - no edema leg 1+ Larm Neurologic: resource protection specialist II-XII grossly normal LAILA GRAMAJO Oct 13, 2017 10:12
[2017-10-13 12:00] VITALS: BP 147/60
--- NOTE | 2017-10-13 13:30 | Progress Note ---
DATE: 10/13/2017 CARDIOLOGY PROGRESS NOTE SUBJECTIVE: The patient's left arm swelling is slightly better. Fistulogram was negative. The patient without nausea or vomiting. Today, her mood is depressed. PHYSICAL EXAMINATION: VITAL SIGNS: Blood pressure 170/71, pulse 80, respiratory rate 18. LUNGS: Clear. CARDIAC: Regular. Normal S1 and S2 with a fourth heart sound. ABDOMEN: Soft. No edema. Palpable bruit over dialysis fistula. EXTREMITIES: Left upper extremity with mild edema. IMPRESSION: 1. Slow progress end-stage renal disease. 2. Malignant hypertension with labile blood pressure. 3. Situational depression. 4. Ischemic cardiomyopathy. 5. Acute myocardial ischemia. 6. Peripheral artery disease. 7. Diabetes mellitus with neuropathy. PLAN: 1. Titrate antihypertensives. 2. Optimize blood glucose control. 3. Mobilize. 4. Elevate left upper extremity. 5. Maintain nitrates and anti-platelet therapy as well as statin drugs. Abraham Wren M.D. DR: Nathen JOB#: [id number] CC:
[2017-10-13 16:00] VITALS: BP 154/65
[2017-10-13 20:00] VITALS: BP 142/66
[2017-10-14] VITALS (8 sets, daily range): BP systolic 150–182; BP diastolic 55–83
[2017-10-14] MEDS ORDERED: Heparin Sod 1000 units/ml 10ml IV SCH (06:00)
[2017-10-14 07:50] LABS: BASOPHILS % (AUTO) 2.4 % (0.0-2.0); EOSINOPHILS % (AUTO) 1.2 % (0.0-3.0); LYMPHOCYTES % (AUTO) 25.5 % (20.0-45.0); MEAN CORPUSCULAR HEMOGLOBIN 27.8 PG (27.0-31.0); MEAN CORPUSCULAR VOLUME 87 FL (80-99); MEAN PLATELET VOLUME 7.3 FL (6.5-10.1); MONOCYTES % (AUTO) 12.3 % (1.0-10.0); NEUTROPHILS % (AUTO) 58.6 % (45.0-75.0); PLATELET COUNT 269 K/UL (150-450); RED BLOOD COUNT 4.68 M/UL (4.20-5.40); RED CELL DISTRIBUTION WIDTH 22.8 % (11.6-14.8); WHITE BLOOD COUNT 5.6 K/UL (4.8-10.8)
[2017-10-14 08:12] LABS: ANION GAP 15 mmol/L (5-15); CALCIUM 9.7 MG/DL (8.5-10.1); CARBON DIOXIDE 27 MMOL/L (21-32); CHLORIDE 92 MMOL/L (98-107); CREATININE 8.5 MG/DL (0.55-1.30); POTASSIUM 4.3 MMOL/L (3.5-5.1); SODIUM 133 MMOL/L (136-145)
[2017-10-14] MEDS: Nephrovite tab (Rena-Vite) ORAL SCH (08:15)
[2017-10-14] MEDS: Aspirin EC 81mg tab ORAL SCH (08:16)
[2017-10-14] MEDS: Heparin 5000 units/ml inj SUBQ SCH ×2 (08:19→21:28)
--- NOTE | 2017-10-14 08:47 | Nephrology Progress Note ---
Assessment/Plan Problem List: (1) Subclavian vein obstruction (2) DM circ dis type I (3) Hypoglycemia (4) End-stage renal disease (5) Coronary artery disease Assessment hd 10/11+10/12+10/14, vasc eval , venogram negative, weak and some nausea better now, symptomatic care hd today ,possible dc soon Subjective Constitutional: Reports: weakness HEENT: Reports: no symptoms Genitourinary: Reports: no symptoms Neurologic/Psychiatric: Reports: no symptoms Subjective L arm less swollen no nausea today Objective Objective Last 24 Hour Vital Signs Date Time Temp Pulse Resp B/P (MAP) Pulse Ox O2 Delivery O2 Flow Rate FiO2 10/14/17 08:03 98.8 70 18 182/79 95 Room Air 10/14/17 06:00 97.3 70 20 156/80 97 Room Air 10/14/17 04:00 73 10/14/17 04:00 97.3 63 20 175/80 97 Room Air 10/14/17 00:49 181/74 10/14/17 00:00 97.9 71 20 181/74 100 Room Air 10/14/17 00:00 72 10/13/17 21:35 71 142/66 10/13/17 21:34 71 142/66 10/13/17 20:00 98.1 71 142/66 95 Room Air 10/13/17 20:00 64 10/13/17 17:06 154/65 10/13/17 16:00 97.9 66 19 154/65 95 Room Air 10/13/17 16:00 66 10/13/17 12:00 98.1 77 20 147/60 96 Room Air 10/13/17 12:00 74 10/13/17 09:59 111 163/73 10/13/17 09:58 163/73 10/13/17 09:58 163/73 10/13/17 09:57 111 161/68 10/13/17 09:56 161/68 Laboratory Tests 10/14/17 07:00: White Blood Count 5.6, Red Blood Count 4.68, Hemoglobin 13.0, Hematocrit 40.7, Mean Corpuscular Volume 87, Mean Corpuscular Hemoglobin 27.8, Mean Corpuscular Hemoglobin Concent 32.0, Red Cell Distribution Width 22.8H, Platelet Count 269, Mean Platelet Volume 7.3, Neutrophils (%) (Auto) 58.6, Lymphocytes (%) (Auto) 25.5, Monocytes (%) (Auto) 12.3H, Eosinophils (%) (Auto) 1.2, Basophils (%) ( Auto) 2.4H, Sodium Level 133L, Potassium Level 4.3, Chloride Level 92L, Carbon Dioxide Level 27, Anion Gap 15, Blood Urea Nitrogen 46H, Creatinine 8.5H, Estimat Glomerular Filtration Rate , Glucose Level 89, Calcium Level 9.7 Height (Feet): 5 Height (Inches): 1.00 Weight (Pounds): 132 General Appearance: no apparent distress, alert EENT: normal ENT inspection Neck: normal alignment Cardiovascular: normal rate, regular rhythm Respiratory/Chest: lungs clear Abdomen: non tender, soft Extremities: non-tender, trace edema Neurologic: buyer grain II-XII grossly normal LAILA GRAMAJO Oct 14, 2017 08:47
[2017-10-14] MEDS: Losartan 50mg tab ORAL SCH (09:00)
[2017-10-14] MEDS: Imdur 30mg tab ORAL SCH (09:00)
[2017-10-14] MEDS: Furosemide 80mg tab ORAL SCH ×2 (09:00→21:26)
--- NOTE | 2017-10-14 10:22 | General Progress Note ---
Assessment/Plan Problem List: (1) End-stage renal disease ICD Codes: N18.6 - End-stage renal disease SNOMED: 02592987 (2) DM circ dis type I ICD Codes: E10.59 - DM circ dis type I SNOMED: 42313924 (3) Hypoglycemia ICD Codes: E16.2 - Hypoglycemia, unspecified SNOMED: 178825567 (4) Coronary artery disease ICD Codes: I25.10 - Atherosclerotic heart disease of [place] coronary artery without angina pectoris SNOMED: 21136301 (5) Subclavian vein obstruction ICD Codes: I82.B19 - Acute embolism and thrombosis of unspecified subclavian vein SNOMED: 774877276 Status: stable, progressing Assessment/Plan monitor bs HD per renal pt/ot eval trial lexapro dc planning if BS/BP stable Subjective ROS Limited/Unobtainable: No Constitutional: Reports: malaise, weakness HEENT: Reports: no symptoms Cardiovascular: Reports: no symptoms Respiratory: Reports: no symptoms Gastrointestinal/Abdominal: Reports: no symptoms Genitourinary: Reports: no symptoms Neurologic/Psychiatric: Reports: pre-existing deficit Endocrine: Reports: no symptoms Hematologic/Lymphatic: Reports: anemia Allergies: Coded Allergies: No Known Allergies (Verified , 10/07/08) All Systems: reviewed and negative except above Subjective fistulogram negative. blood sugars still trending on the low side. ?depressed. bp uncontrolled. Objective Last 24 Hour Vital Signs Date Time Temp Pulse Resp B/P (MAP) Pulse Ox O2 Delivery O2 Flow Rate FiO2 10/14/17 08:03 98.8 70 18 182/79 95 Room Air 10/14/17 06:00 97.3 70 20 156/80 97 Room Air 10/14/17 04:00 73 10/14/17 04:00 97.3 63 20 175/80 97 Room Air 10/14/17 00:49 181/74 10/14/17 00:00 97.9 71 20 181/74 100 Room Air 10/14/17 00:00 72 10/13/17 21:35 71 142/66 10/13/17 21:34 71 142/66 10/13/17 20:00 98.1 71 142/66 95 Room Air 10/13/17 20:00 64 10/13/17 17:06 154/65 10/13/17 16:00 97.9 66 19 154/65 95 Room Air 10/13/17 16:00 66 10/13/17 12:00 98.1 77 20 147/60 96 Room Air 10/13/17 12:00 74 Intake and Output 10/14/17 10/15/17 19:00 07:00 Intake Total 120 ml Balance 120 ml Intake Oral 120 ml Laboratory Tests 10/14/17 07:00: White Blood Count 5.6, Red Blood Count 4.68, Hemoglobin 13.0, Hematocrit 40.7, Mean Corpuscular Volume 87, Mean Corpuscular Hemoglobin 27.8, Mean Corpuscular Hemoglobin Concent 32.0, Red Cell Distribution Width 22.8H, Platelet Count 269, Mean Platelet Volume 7.3, Neutrophils (%) (Auto) 58.6, Lymphocytes (%) (Auto) 25.5, Monocytes (%) (Auto) 12.3H, Eosinophils (%) (Auto) 1.2, Basophils (%) ( Auto) 2.4H, Sodium Level 133L, Potassium Level 4.3, Chloride Level 92L, Carbon Dioxide Level 27, Anion Gap 15, Blood Urea Nitrogen 46H, Creatinine 8.5H, Estimat Glomerular Filtration Rate , Glucose Level 89, Calcium Level 9.7 Height (Feet): 5 Height (Inches): 1.00 Weight (Pounds): 132 General Appearance: WD/WN, alert Neck: supple Cardiovascular: normal rate, regular rhythm Respiratory/Chest: chest wall non-tender, lungs clear, normal breath sounds Abdomen: normal bowel sounds, non tender, soft, no organomegaly Edema: no edema noted Arm (L), no edema noted Arm (R), no edema noted Leg (L), no edema noted Leg (R), no edema noted Pedal (L), no edema noted Pedal (R), no edema noted Generalized TIM RAZO Oct 14, 2017 10:22
[2017-10-14] MEDS ORDERED: D5W 275ml ONE (10:53)
[2017-10-14] MEDS ORDERED: D5 1/2NS 1000ml IV ONE (10:53)
[2017-10-14] MEDS ORDERED: Tubing IV Secondary IV ONE (10:53)
[2017-10-14] MEDS ORDERED: D5NS 1000ml IV ONE (10:53)
[2017-10-14] MEDS: HydrALAZINE 50mg tab ORAL SCH (17:00)
[2017-10-14] MEDS: Epogen (for ESRD on dialysis) SUBQ SCH (21:00)
[2017-10-14] MEDS: Atorvastatin 80mg tab ORAL SCH (21:26)
[2017-10-15] VITALS (8 sets, daily range): BP systolic 140–165; BP diastolic 55–65
[2017-10-15] MEDS: Aspirin EC 81mg tab ORAL SCH (08:20)
[2017-10-15] MEDS: Nephrovite tab (Rena-Vite) ORAL SCH (08:21)
[2017-10-15] MEDS: Furosemide 80mg tab ORAL SCH ×2 (08:21→22:16)
[2017-10-15] MEDS: Imdur 30mg tab ORAL SCH (08:22)
[2017-10-15] MEDS: HydrALAZINE 50mg tab ORAL SCH ×2 (08:22→17:04)
[2017-10-15] MEDS: Losartan 50mg tab ORAL SCH (08:22)
[2017-10-15] MEDS: Heparin 5000 units/ml inj SUBQ SCH ×2 (08:23→22:21)
--- NOTE | 2017-10-15 11:28 | General Progress Note ---
Assessment/Plan Problem List: (1) End-stage renal disease ICD Codes: N18.6 - End-stage renal disease SNOMED: 13859976 (2) DM circ dis type I ICD Codes: E10.59 - DM circ dis type I SNOMED: 93788017 (3) Hypoglycemia ICD Codes: E16.2 - Hypoglycemia, unspecified SNOMED: 033705865 (4) Coronary artery disease ICD Codes: I25.10 - Atherosclerotic heart disease of [place] coronary artery without angina pectoris SNOMED: 42107763 (5) Subclavian vein obstruction ICD Codes: I82.B19 - Acute embolism and thrombosis of unspecified subclavian vein SNOMED: 007479437 Status: stable, progressing Assessment/Plan monitor bs HD per renal pt/ot eval deprssion rx does not feel "ready" to go home because of weakness and dizziness consider aru or snf Subjective ROS Limited/Unobtainable: No Constitutional: Reports: malaise, weakness HEENT: Reports: no symptoms Cardiovascular: Reports: no symptoms Respiratory: Reports: no symptoms Gastrointestinal/Abdominal: Reports: no symptoms Genitourinary: Reports: no symptoms Neurologic/Psychiatric: Reports: weakness Endocrine: Reports: no symptoms Hematologic/Lymphatic: Reports: anemia Allergies: Coded Allergies: No Known Allergies (Verified , 10/07/08) All Systems: reviewed and negative except above Subjective no events. c/o dizziness and generalized weakness. no chest pain no sob. no fever or chills. Objective Last 24 Hour Vital Signs Date Time Temp Pulse Resp B/P (MAP) Pulse Ox O2 Delivery O2 Flow Rate FiO2 10/15/17 08:22 145/59 10/15/17 08:22 145/59 10/15/17 08:22 145/59 10/15/17 08:21 64 145/59 10/15/17 08:21 64 145/59 10/15/17 08:00 97.5 69 20 165/65 98 Room Air 10/15/17 08:00 64 10/15/17 04:53 97.8 64 18 145/59 92 Room Air 10/15/17 04:00 73 10/15/17 01:11 96.4 72 18 150/55 96 Room Air 10/15/17 01:08 96.4 72 18 150/55 96 Room Air 10/15/17 00:00 68 10/15/17 00:00 97.7 18 162/57 97 Room Air 2.0 10/14/17 21:27 77 162/57 10/14/17 21:26 77 162/57 10/14/17 20:00 76 10/14/17 20:00 97.7 77 18 162/57 97 Room Air 2.0 10/14/17 17:00 164/67 10/14/17 16:00 83 10/14/17 15:41 97.7 82 18 164/67 99 10/14/17 15:10 187/74 10/14/17 12:00 78 10/14/17 11:30 96.4 72 18 150/55 96 Room Air 10/14/17 11:29 96.3 73 18 172/83 95 Room Air Height (Feet): 5 Height (Inches): 1.00 Weight (Pounds): 117 Objective General Appearance: WD/WN, alert Neck: supple Cardiovascular: normal rate, regular rhythm Respiratory/Chest: chest wall non-tender, lungs clear, normal breath sounds Abdomen: normal bowel sounds, non tender, soft, no organomegaly Edema: no edema noted Arm (L), no edema noted Arm (R), no edema noted Leg (L), no edema noted Leg (R), no edema noted Pedal (L), no edema noted Pedal (R), no edema noted Generalized TIM RAZO Oct 15, 2017 11:28
--- NOTE | 2017-10-15 13:33 | Nephrology Progress Note ---
Assessment/Plan Problem List: (1) Subclavian vein obstruction (2) DM circ dis type I (3) Hypoglycemia (4) End-stage renal disease (5) Coronary artery disease Assessment hd 10/11+10/12+10/14, vasc eval , venogram negative, weak and some nausea better now, symptomatic care hd 10/14 ,possible dc soon Subjective Constitutional: Reports: weakness HEENT: Reports: no symptoms Genitourinary: Reports: no symptoms Neurologic/Psychiatric: Reports: no symptoms Subjective L arm less swollen no nausea today Objective Objective Last 24 Hour Vital Signs Date Time Temp Pulse Resp B/P (MAP) Pulse Ox O2 Delivery O2 Flow Rate FiO2 10/15/17 12:00 63 10/15/17 12:00 97.6 65 20 157/61 98 Room Air 10/15/17 08:22 145/59 10/15/17 08:22 145/59 10/15/17 08:22 145/59 10/15/17 08:21 64 145/59 10/15/17 08:21 64 145/59 10/15/17 08:00 97.5 69 20 165/65 98 Room Air 10/15/17 08:00 64 10/15/17 04:53 97.8 64 18 145/59 92 Room Air 10/15/17 04:00 73 10/15/17 01:11 96.4 72 18 150/55 96 Room Air 10/15/17 01:08 96.4 72 18 150/55 96 Room Air 10/15/17 00:00 68 10/15/17 00:00 97.7 18 162/57 97 Room Air 2.0 10/14/17 21:27 77 162/57 10/14/17 21:26 77 162/57 10/14/17 20:00 76 10/14/17 20:00 97.7 77 18 162/57 97 Room Air 2.0 10/14/17 17:00 164/67 10/14/17 16:00 83 10/14/17 15:41 97.7 82 18 164/67 99 10/14/17 15:10 187/74 Height (Feet): 5 Height (Inches): 1.00 Weight (Pounds): 117 General Appearance: no apparent distress, alert EENT: normal ENT inspection Neck: normal alignment Cardiovascular: normal rate, regular rhythm Respiratory/Chest: lungs clear Abdomen: non tender, soft Extremities: other - no edema Neurologic: aix architect II-XII grossly normal LAILA GRAMAJO Oct 15, 2017 13:33
[2017-10-15] MEDS: Atorvastatin 80mg tab ORAL SCH (22:17)
[2017-10-16] VITALS (8 sets, daily range): BP systolic 109–181; BP diastolic 60–67
[2017-10-16] MEDS: HydrALAZINE 50mg tab ORAL SCH ×3 (08:30→21:14)
[2017-10-16] MEDS: Aspirin EC 81mg tab ORAL SCH (08:32)
[2017-10-16] MEDS: Nephrovite tab (Rena-Vite) ORAL SCH (08:33)
[2017-10-16] MEDS: Losartan 50mg tab ORAL SCH (08:33)
[2017-10-16] MEDS: Furosemide 80mg tab ORAL SCH ×2 (08:33→21:09)
[2017-10-16] MEDS: Heparin 5000 units/ml inj SUBQ SCH ×2 (08:35→21:10)
[2017-10-16] MEDS: Imdur 30mg tab ORAL SCH (08:55)
--- NOTE | 2017-10-16 11:28 | Nephrology Progress Note ---
Assessment/Plan Problem List: (1) Subclavian vein obstruction (2) DM circ dis type I (3) Hypoglycemia (4) End-stage renal disease (5) Coronary artery disease Assessment hd 10/11+10/12+10/14, vasc eval , venogram negative, weak and some nausea better now, symptomatic care hd 10/14 ,possible dc soon Subjective HEENT: Reports: no symptoms Genitourinary: Reports: no symptoms Neurologic/Psychiatric: Reports: no symptoms Subjective L arm less swollen no nausea today Objective Objective Last 24 Hour Vital Signs Date Time Temp Pulse Resp B/P (MAP) Pulse Ox O2 Delivery O2 Flow Rate FiO2 10/16/17 08:55 156/60 10/16/17 08:34 66 156/60 10/16/17 08:33 156/60 10/16/17 08:33 66 156/60 10/16/17 08:30 156/60 10/16/17 08:00 71 10/16/17 08:00 98.2 70 18 172/64 100 Room Air 10/16/17 04:00 97.5 66 20 156/60 100 Room Air 10/16/17 04:00 66 10/16/17 02:30 181/67 10/16/17 01:45 163/62 10/16/17 00:00 97.7 68 18 /62 97 Room Air 10/16/17 00:00 66 10/15/17 22:17 65 140/57 10/15/17 22:15 65 140/57 10/15/17 20:00 66 10/15/17 19:54 97.9 65 20 140/57 100 Room Air 10/15/17 17:04 153/58 10/15/17 16:00 97.9 64 20 153/58 97 Room Air 10/15/17 16:00 63 10/15/17 12:00 63 10/15/17 12:00 97.6 65 20 157/61 98 Room Air Intake and Output 10/16/17 10/17/17 19:00 07:00 Intake Total 180 ml Balance 180 ml Intake Oral 180 ml Height (Feet): 5 Height (Inches): 1.00 Weight (Pounds): 115 General Appearance: no apparent distress, alert EENT: normal ENT inspection Neck: normal alignment Cardiovascular: normal rate, regular rhythm Respiratory/Chest: lungs clear Abdomen: no organomegaly Extremities: trace edema Neurologic: production administrator II-XII grossly normal LAILA GRAMAJO Oct 16, 2017 11:28
[2017-10-16] MEDS ORDERED: Heparin Sod 1000 units/ml 10ml IV PRN (11:40)
--- NOTE | 2017-10-16 12:57 | General Progress Note ---
Assessment/Plan Problem List: (1) End-stage renal disease ICD Codes: N18.6 - End-stage renal disease SNOMED: 67527103 (2) DM circ dis type I ICD Codes: E10.59 - DM circ dis type I SNOMED: 08975450 (3) Hypoglycemia ICD Codes: E16.2 - Hypoglycemia, unspecified SNOMED: 013902943 (4) Coronary artery disease ICD Codes: I25.10 - Atherosclerotic heart disease of [place] coronary artery without angina pectoris SNOMED: 20478300 (5) Subclavian vein obstruction ICD Codes: I82.B19 - Acute embolism and thrombosis of unspecified subclavian vein SNOMED: 672216806 Status: stable Assessment/Plan monitor bs HD per renal pt/ot eval deprssion rx does not feel "ready" to go home because of weakness and dizziness consider aru or snf Subjective ROS Limited/Unobtainable: No Constitutional: Reports: malaise, weakness HEENT: Reports: no symptoms Cardiovascular: Reports: no symptoms Respiratory: Reports: no symptoms Gastrointestinal/Abdominal: Reports: nausea Genitourinary: Reports: no symptoms Neurologic/Psychiatric: Reports: pre-existing deficit Endocrine: Reports: no symptoms Hematologic/Lymphatic: Reports: no symptoms Allergies: Coded Allergies: No Known Allergies (Verified , 10/07/08) All Systems: reviewed and negative except above Subjective no events. c/o dizziness and generalized weakness. no chest pain no sob. no fever or chills. ?depressed does not feel well enough to go home Objective Last 24 Hour Vital Signs Date Time Temp Pulse Resp B/P (MAP) Pulse Ox O2 Delivery O2 Flow Rate FiO2 10/16/17 12:43 64 10/16/17 08:55 156/60 10/16/17 08:34 66 156/60 10/16/17 08:33 156/60 10/16/17 08:33 66 156/60 10/16/17 08:30 156/60 10/16/17 08:00 71 10/16/17 08:00 98.2 70 18 172/64 100 Room Air 10/16/17 04:00 97.5 66 20 156/60 100 Room Air 10/16/17 04:00 66 10/16/17 02:30 181/67 10/16/17 01:45 163/62 10/16/17 00:00 97.7 68 18 /62 97 Room Air 10/16/17 00:00 66 10/15/17 22:17 65 140/57 10/15/17 22:15 65 140/57 10/15/17 20:00 66 10/15/17 19:54 97.9 65 20 140/57 100 Room Air 10/15/17 17:04 153/58 10/15/17 16:00 97.9 64 20 153/58 97 Room Air 10/15/17 16:00 63 Intake and Output 10/16/17 10/17/17 19:00 07:00 Intake Total 180 ml Balance 180 ml Intake Oral 180 ml Height (Feet): 5 Height (Inches): 1.00 Weight (Pounds): 115 Objective General Appearance: WD/WN, alert Neck: supple Cardiovascular: normal rate, regular rhythm Respiratory/Chest: chest wall non-tender, lungs clear, normal breath sounds Abdomen: normal bowel sounds, non tender, soft, no organomegaly Edema: no edema noted Arm (L), no edema noted Arm (R), no edema noted Leg (L), no edema noted Leg (R), no edema noted Pedal (L), no edema noted Pedal (R), no edema noted Generalized TIM RAZO Oct 16, 2017 12:57
[2017-10-16] MEDS ORDERED: D5 1/2NS 1000ml IV ONE (16:07)
[2017-10-16] MEDS: Atorvastatin 80mg tab ORAL SCH (21:08)
[2017-10-17] VITALS (7 sets, daily range): BP systolic 140–180; BP diastolic 53–77
[2017-10-17] MEDS: HydrALAZINE 50mg tab ORAL SCH ×2 (05:47→13:53)
[2017-10-17 07:23] LABS: EOSINOPHILS % (AUTO) 1.4 % (0.0-3.0); LYMPHOCYTES % (AUTO) 22.4 % (20.0-45.0); MEAN CORPUSCULAR HEMOGLOBIN 27.6 PG (27.0-31.0); MEAN CORPUSCULAR HGB CONC 31.2 G/DL (32.0-36.0); MEAN CORPUSCULAR VOLUME 88 FL (80-99); MEAN PLATELET VOLUME 7.5 FL (6.5-10.1); MONOCYTES % (AUTO) 9.5 % (1.0-10.0); NEUTROPHILS % (AUTO) 64.7 % (45.0-75.0); PLATELET COUNT 296 K/UL (150-450); RED BLOOD COUNT 4.35 M/UL (4.20-5.40); WHITE BLOOD COUNT 6.7 K/UL (4.8-10.8)
--- NOTE | 2017-10-17 08:39 | General Progress Note ---
Assessment/Plan Problem List: (1) End-stage renal disease ICD Codes: N18.6 - End-stage renal disease SNOMED: 17309232 (2) DM circ dis type I ICD Codes: E10.59 - DM circ dis type I SNOMED: 85493568 (3) Hypoglycemia ICD Codes: E16.2 - Hypoglycemia, unspecified SNOMED: 373131877 (4) Coronary artery disease ICD Codes: I25.10 - Atherosclerotic heart disease of [place] coronary artery without angina pectoris SNOMED: 55998791 (5) Subclavian vein obstruction ICD Codes: I82.B19 - Acute embolism and thrombosis of unspecified subclavian vein SNOMED: 729576924 Assessment/Plan monitor bs HD per renal pt/ot eval deprssion rx does not feel "ready" to go home because of weakness and dizziness consider aru or snf Subjective ROS Limited/Unobtainable: No Constitutional: Reports: malaise, weakness HEENT: Reports: no symptoms Cardiovascular: Reports: no symptoms Respiratory: Reports: no symptoms Gastrointestinal/Abdominal: Reports: no symptoms Genitourinary: Reports: no symptoms Neurologic/Psychiatric: Reports: no symptoms Endocrine: Reports: no symptoms Hematologic/Lymphatic: Reports: anemia Allergies: Coded Allergies: No Known Allergies (Verified , 10/07/08) All Systems: reviewed and negative except above Subjective no events. c/o dizziness and generalized weakness. no chest pain no sob. no fever or chills. ?depressed. started on lexapro HD dc planning today if ok with all Objective Last 24 Hour Vital Signs Date Time Temp Pulse Resp B/P (MAP) Pulse Ox O2 Delivery O2 Flow Rate FiO2 10/17/17 08:15 97.5 65 18 148/56 96 10/17/17 05:47 161/53 10/17/17 04:00 97.7 60 18 161/53 97 Room Air 10/17/17 04:00 57 10/17/17 00:00 97.9 60 20 140/58 96 Room Air 10/17/17 00:00 59 10/16/17 21:14 150/57 10/16/17 21:08 60 147/60 10/16/17 21:08 60 147/60 10/16/17 20:22 98.2 60 18 147/60 97 Room Air 10/16/17 20:00 66 10/16/17 16:00 59 10/16/17 16:00 97.9 65 18 114/60 100 Room Air 10/16/17 13:28 146/67 10/16/17 13:24 146/67 10/16/17 12:43 64 10/16/17 12:00 97.9 63 17 109/62 98 Room Air 10/16/17 08:55 156/60 Laboratory Tests 10/17/17 06:00: White Blood Count 6.7, Red Blood Count 4.35, Hemoglobin 12.0, Hematocrit 38.4, Mean Corpuscular Volume 88, Mean Corpuscular Hemoglobin 27.6, Mean Corpuscular Hemoglobin Concent 31.2L, Red Cell Distribution Width 23.0H, Platelet Count 296 , Mean Platelet Volume 7.5, Neutrophils (%) (Auto) 64.7, Lymphocytes (%) (Auto) 22.4, Monocytes (%) (Auto) 9.5, Eosinophils (%) (Auto) 1.4, Basophils (%) (Auto ) 2.0 Height (Feet): 5 Height (Inches): 1.00 Weight (Pounds): 117 Objective General Appearance: WD/WN, alert Neck: supple Cardiovascular: normal rate, regular rhythm Respiratory/Chest: chest wall non-tender, lungs clear, normal breath sounds Abdomen: normal bowel sounds, non tender, soft, no organomegaly Edema: no edema noted Arm (L), no edema noted Arm (R), no edema noted Leg (L), no edema noted Leg (R), no edema noted Pedal (L), no edema noted Pedal (R), no edema noted Generalized TIM RZAO Oct 17, 2017 08:39
[2017-10-17] MEDS: Imdur 30mg tab ORAL SCH (09:00)
[2017-10-17] MEDS: Losartan 50mg tab ORAL SCH (09:00)
[2017-10-17] MEDS: Aspirin EC 81mg tab ORAL SCH (09:21)
[2017-10-17] MEDS: Nephrovite tab (Rena-Vite) ORAL SCH (09:22)
[2017-10-17] MEDS: Furosemide 80mg tab ORAL SCH ×2 (09:22→21:00)
[2017-10-17] MEDS: Heparin 5000 units/ml inj SUBQ SCH ×2 (09:24→21:00)
--- NOTE | 2017-10-17 10:18 | Diagnostic Imaging Report ---
APPROVED REPORT CPT Code: 09174 Present Symptoms Comments: Swelling LEFT UPPER EXTREMITY: Imaging reveals patency of the internal jugular, subclavian, axillary and brachial veins. Imaging also reveals patency of the cephalic and basilic veins. Doppler indicates normal spontaneous flow within these venous segments.
--- NOTE | 2017-10-17 15:09 | Nephrology Progress Note ---
Assessment/Plan Problem List: (1) Subclavian vein obstruction (2) DM circ dis type I (3) Hypoglycemia (4) End-stage renal disease (5) Coronary artery disease Assessment hd 10/11+10/12+10/14, vasc eval , venogram negative, weak and some nausea better now, symptomatic care hd 10/17,possible dc soon to [facility], rx depression per dr ceballos Subjective Constitutional: Reports: weakness HEENT: Reports: no symptoms Genitourinary: Reports: no symptoms Neurologic/Psychiatric: Reports: no symptoms, Denies: anxiety, depressed, emotional problems, headache, numbness, paresthesia, pre-existing deficit, seizure, tingling, tremors, weakness, other Subjective mild nausea today Objective Objective Last 24 Hour Vital Signs Date Time Temp Pulse Resp B/P (MAP) Pulse Ox O2 Delivery O2 Flow Rate FiO2 10/17/17 13:53 176/70 10/17/17 13:40 62 65 65 10/17/17 13:37 176/70 173/69 180/67 10/17/17 11:42 97.5 64 18 155/55 98 10/17/17 08:15 97.5 65 18 148/56 96 10/17/17 08:00 62 10/17/17 05:47 161/53 10/17/17 04:00 97.7 60 18 161/53 97 Room Air 10/17/17 04:00 57 10/17/17 00:00 97.9 60 20 140/58 96 Room Air 10/17/17 00:00 59 10/16/17 21:14 150/57 10/16/17 21:08 60 147/60 10/16/17 21:08 60 147/60 10/16/17 20:22 98.2 60 18 147/60 97 Room Air 10/16/17 20:00 66 10/16/17 16:00 59 10/16/17 16:00 97.9 65 18 114/60 100 Room Air Laboratory Tests 10/17/17 06:00: White Blood Count 6.7, Red Blood Count 4.35, Hemoglobin 12.0, Hematocrit 38.4, Mean Corpuscular Volume 88, Mean Corpuscular Hemoglobin 27.6, Mean Corpuscular Hemoglobin Concent 31.2L, Red Cell Distribution Width 23.0H, Platelet Count 296 , Mean Platelet Volume 7.5, Neutrophils (%) (Auto) 64.7, Lymphocytes (%) (Auto) 22.4, Monocytes (%) (Auto) 9.5, Eosinophils (%) (Auto) 1.4, Basophils (%) (Auto ) 2.0 Height (Feet): 5 Height (Inches): 1.00 Weight (Pounds): 117 General Appearance: no apparent distress, alert EENT: normal ENT inspection Neck: normal alignment Cardiovascular: normal rate, regular rhythm Respiratory/Chest: lungs clear, normal breath sounds Abdomen: non tender, soft, no organomegaly Extremities: trace edema 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
[2017-10-17] MEDS: Atorvastatin 80mg tab ORAL SCH (21:00)
[2017-10-18] VITALS (9 sets, daily range): BP systolic 151–202; BP diastolic 58–82
--- NOTE | 2017-10-18 04:15 | Progress Note ---
DATE: 10/17/2017 CARDIOLOGY PROGRESS NOTE SUBJECTIVE: The patient's left upper extremity edema has improved. The patient still feels weak and dizzy with some nausea and poor appetite. OBJECTIVE: VITAL SIGNS: Revealed labile blood pressure with no orthostasis. Blood pressure up to 180/67, heart rate 64, and respiratory rate 18. NECK: Supple. LUNGS: Clear. CARDIAC: Regular. Normal S1, S2 with a fourth heart sound. ABDOMEN: Soft. EXTREMITIES: No edema. Palpable bruit over fistula. IMPRESSION: 1. Coronary artery disease. 2. Status post non-ST elevation myocardial infarction. 3. Acute on chronic diastolic congestive heart failure. 4. End-stage renal disease. 5. Situational depression. 6. Insulin-requiring diabetes with multiple complications. PLAN: 1. Antidepressant therapy. 2. Hemodialysis with ultrafiltration. 3. Continue nitrates and anti-platelet drugs with statin. 4. Avoid tight blood pressure control due to orthostatic risk and symptoms associated with that, but presently, the patient's blood pressure control does require some additional medications. 5. Discontinue diuretics. Abraham Wren M.D. DR: PRIYANKA JOB#: [id number] CC:
[2017-10-18] MEDS ORDERED: HydrALAZINE 50mg tab ORAL SCH (06:00)
[2017-10-18] MEDS: HydrALAZINE 50mg tab ORAL SCH ×2 (07:13→14:05)
[2017-10-18] MEDS: Aspirin EC 81mg tab ORAL SCH (08:20)
[2017-10-18] MEDS: Losartan 50mg tab ORAL SCH (08:22)
[2017-10-18] MEDS: Heparin 5000 units/ml inj SUBQ SCH (08:24)
[2017-10-18] MEDS: Imdur 30mg tab ORAL SCH (08:24)
[2017-10-18] MEDS: Nephrovite tab (Rena-Vite) ORAL SCH (08:30)
[2017-10-18] MEDS ORDERED: Furosemide 80mg tab ORAL SCH (09:00)
--- NOTE | 2017-10-18 09:28 | General Progress Note ---
Assessment/Plan Problem List: (1) End-stage renal disease ICD Codes: N18.6 - End-stage renal disease SNOMED: 82872840 (2) DM circ dis type I ICD Codes: E10.59 - DM circ dis type I SNOMED: 98230939 (3) Hypoglycemia ICD Codes: E16.2 - Hypoglycemia, unspecified SNOMED: 441688782 (4) Coronary artery disease ICD Codes: I25.10 - Atherosclerotic heart disease of [place] coronary artery without angina pectoris SNOMED: 80257076 (5) Subclavian vein obstruction ICD Codes: I82.B19 - Acute embolism and thrombosis of unspecified subclavian vein SNOMED: 824770250 Status: stable Assessment/Plan dc planning if bp better controlled. Subjective ROS Limited/Unobtainable: No Constitutional: Reports: malaise, weakness HEENT: Reports: no symptoms Cardiovascular: Reports: no symptoms Respiratory: Reports: no symptoms Gastrointestinal/Abdominal: Reports: no symptoms Genitourinary: Reports: no symptoms Neurologic/Psychiatric: Reports: no symptoms Endocrine: Reports: no symptoms Hematologic/Lymphatic: Reports: no symptoms Allergies: Coded Allergies: No Known Allergies (Verified , 10/07/08) All Systems: reviewed and negative except above Subjective no events. bp remain uncontrolled. sbp 190-200s. Objective Last 24 Hour Vital Signs Date Time Temp Pulse Resp B/P (MAP) Pulse Ox O2 Delivery O2 Flow Rate FiO2 10/18/17 08:24 189/77 10/18/17 08:22 189/77 10/18/17 08:21 67 189/77 10/18/17 08:20 67 189/77 10/18/17 08:14 97.0 66 18 202/73 100 10/18/17 07:13 179/66 10/18/17 04:00 10/18/17 04:00 65 10/18/17 04:00 70 170/60 10/18/17 00:00 71 10/18/17 00:00 70 177/72 10/17/17 21:15 Room Air 10/17/17 21:00 70 177/72 10/17/17 20:00 65 151/77 10/17/17 20:00 65 10/17/17 18:30 Room Air 10/17/17 16:00 59 10/17/17 15:31 97.5 59 18 175/57 99 10/17/17 13:53 176/70 10/17/17 13:40 62 65 65 10/17/17 13:37 176/70 173/69 180/67 10/17/17 12:00 64 10/17/17 11:42 97.5 64 18 155/55 98 Height (Feet): 5 Height (Inches): 1.00 Weight (Pounds): 117 Objective General Appearance: WD/WN, alert Neck: supple Cardiovascular: normal rate, regular rhythm Respiratory/Chest: chest wall non-tender, lungs clear, normal breath sounds Abdomen: normal bowel sounds, non tender, soft, no organomegaly Edema: no edema noted Arm (L), no edema noted Arm (R), no edema noted Leg (L), no edema noted Leg (R), no edema noted Pedal (L), no edema noted Pedal (R), no edema noted Generalized TIM RAZO Oct 18, 2017 09:28
--- NOTE | 2017-10-18 10:16 | Wound Care Consultation ---
Wound Assessment Wound Assessment : Wound Number: 1 Wound Present on Admission: No New Wound: Yes Status Change of Wound: No Wound Location Body Site Modif: mid Wound Location Body Site: sacral Wound Type: other - thick dry flaky skin Kate Test: Does not Kate Wound Length: 2.0 - scattered Wound Width: 2.0 - scattered Percent of Wound Black/Brown: 100 - cain flaky skin Wound Drainage Amount: None Wound Drainage Odor: None/Absent Tissue Surrounding Wound: dry flaky Wound Comment Reassessment #1 Open blisters on left arm - noted good progress resolving #2 Mid Sacral thick cain dry flaky skin. Recommendation -Local wound care as ordered. -Apply low air loss SPR for skin management and prevention -Turn and reposition. -Remind patient and encourage to reposition and offload site. patient is able to self reposition. -Keep clean and dry -Local wound care for denuded blister per protocol -Assess and f/u with MD for any changes of condition to skin. per patient she does lay on her back reminded to reposition and offload area, made aware of thick flaky skin to sacral area. SANDRA KUMARI Oct 18, 2017 10:16
--- NOTE | 2017-10-18 13:20 | Nephrology Progress Note ---
Assessment/Plan Problem List: (1) Subclavian vein obstruction (2) DM circ dis type I (3) Hypoglycemia (4) End-stage renal disease (5) Coronary artery disease Assessment better now, symptomatic care hd 10/17,possible dc soon rx depression per dr ceballos avoid too tight bp control as tendency to get low bp on dialysis Subjective Constitutional: Reports: weakness HEENT: Reports: no symptoms Genitourinary: Reports: no symptoms Neurologic/Psychiatric: Reports: no symptoms Subjective feels better today Objective Objective Last 24 Hour Vital Signs Date Time Temp Pulse Resp B/P (MAP) Pulse Ox O2 Delivery O2 Flow Rate FiO2 10/18/17 12:00 72 10/18/17 11:41 97.1 72 18 156/82 100 10/18/17 11:00 20 183/72 99 10/18/17 10:56 183/72 10/18/17 10:30 75 18 168/58 99 10/18/17 09:30 72 20 157/61 100 10/18/17 08:24 189/77 10/18/17 08:22 189/77 10/18/17 08:21 67 189/77 10/18/17 08:20 67 189/77 10/18/17 08:20 67 189/77 10/18/17 08:14 97.0 66 18 202/73 100 10/18/17 08:00 70 10/18/17 07:13 179/66 10/18/17 04:00 10/18/17 04:00 65 10/18/17 04:00 70 170/60 10/18/17 00:00 71 10/18/17 00:00 70 177/72 10/17/17 21:15 Room Air 10/17/17 21:00 70 177/72 10/17/17 20:00 65 151/77 10/17/17 20:00 65 10/17/17 18:30 Room Air 10/17/17 16:00 59 10/17/17 15:31 97.5 59 18 175/57 99 10/17/17 13:53 176/70 10/17/17 13:40 62 65 65 10/17/17 13:37 176/70 173/69 180/67 Intake and Output 10/18/17 10/19/17 19:00 07:00 Intake Total 120 ml Balance 120 ml Intake Oral 120 ml Height (Feet): 5 Height (Inches): 1.00 Weight (Pounds): 117 General Appearance: no apparent distress, alert EENT: normal ENT inspection Neck: normal alignment Cardiovascular: normal rate, regular rhythm Respiratory/Chest: lungs clear, normal breath sounds Abdomen: non tender, soft, no organomegaly Extremities: trace edema 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
[2017-10-18] MEDS ORDERED: NS 500ML ONE (14:39)
--- NOTE | 2017-10-19 | Progress Note ---
DATE: 10/18/2017 CARDIOLOGY PROGRESS NOTE SUBJECTIVE: The patient feels better, but her blood pressure continues to be labile. She had hemodialysis with ultrafiltration yesterday. Monitored rhythm, sinus with atrial ectopy and episodes of bradycardia. OBJECTIVE: LUNGS: Clear. CARDIAC: Regular. Normal S1, S2 with a fourth heart sound. ABDOMEN: Soft. EXTREMITIES: No edema. IMPRESSION: 1. Malignant range hypertension. 2. History of orthostatic hypotension. 3. History of post dialysis hypotension. 4. Symptomatic hypotension, secondary to tight blood pressure control in the past. 5. Sinus node disease. 6. Coronary artery disease with class 2 angina. PLAN: 1. We would discharge on current medication regimen. 2. We will follow very closely as an outpatient from both renal and cardiovascular standpoints. 3. We will titrate blood pressure medication on a regular basis as needed. 4. Maintain anti-platelet and anti-lipid drugs as well as needed nitrates. Abraham Wren M.D. DR: PRIYANKA JOB#: [id number] CC:
--- NOTE | 2017-10-20 12:57 | Discharge Summary ---
Discharge Summary Hospital Course Date of Admission Oct 10, 2017 at 13:48 Date of Discharge Oct 18, 2017 at 14:40 Admitting Diagnosis HYPOGLYCEMIA,ESRD HPI Haroon Munguia is a 77 year old female who was admitted on Oct 10, 2017 at 13: 48 for Hypoglycemia End Stage Renal Disease Hospital Course [id number] Discharge Discharge Disposition Patient was discharged to Home (01) Discharge Diagnoses: Kailey Ching NP Oct 20, 2017 12:57
--- NOTE | 2017-10-20 21:45 | Discharge Summary 2 SIG ---
DATE OF ADMISSION: 10/10/2017 DATE OF DISCHARGE: 10/18/2017 CONSULTANTS: 1. Abraham Wren M.D. 2. Herman Crouch M.D. BRIEF HOSPITAL COURSE: The patient is a 77-year-old female with history of end-stage renal disease, ischemic cardiomyopathy, hypertension, and diabetes who presented to emergency room with complaints of altered mental status. The patient was apparently noted to be confused by family members and has missed her dialysis session. On evaluation at ED, she was noted to be hypoglycemic. She had nonspecific shortness of breath as well as chest pain. She was noted to have a blood sugar of 20 by EMS. On evaluation at ED, EKG showed sinus rhythm with diffuse T-wave inversion. CT of the head showed degenerative changes without evident intracranial hemorrhage or acute CVA. WBC was elevated to 16. Creatinine was 9.6 and BUN 58. Chest x-ray showed no acute disease. She was admitted to telemetry for hypoglycemia and end-stage renal disease with diabetes and cardiomyopathy. She was given IV hydration with dextrose and blood sugars were monitored. The patient was recently admitted to [facility] for fistulogram of the right arm due to right arm swelling over the site of dialysis fistula. During that admission, she developed congestive heart failure and acute non-ST elevated MS, cardiac catheterization showed small calcified vessels. Medical management was recommended. She was seen by Dr. Wren for concerns of abnormal EKG as there were anterolateral T-wave changes and noted left ventricular hypertrophy. Troponin was 0.074. She was continued on antiplatelet and anti-lipid therapy. She was given Cozaar and Coreg and amlodipine. She was noted to have swelling on the AV fistula site. On 10/12/2017, she underwent a venogram on the left arm. Result was negative for significant left upper extremity central venous stenosis or occlusive disease. She was given inpatient hemodialysis. Blood sugars were eventually stabilized. She had blisters on the left arm and was given wound care. She was given PT and OT. She was eventually discharged home. FINAL DIAGNOSES: 1. Acute hypoglycemia. 2. End-stage renal disease, on hemodialysis. 3. Diabetes mellitus. 4. Coronary artery disease with class II angina. 5. Symptomatic hypotension secondary to tight blood pressure control. 6. Malignant range hypertension. 7. Sinus node disease. 8. Diabetes mellitus type 1. 9. Subclavian vein obstruction. 10. Open blisters on the left arm. DISPOSITION: The patient was discharged home. DISCHARGE MEDICATIONS: Refer to medication list. DISCHARGE INSTRUCTIONS: The patient was advised to follow up with PMD and to continue with outpatient hemodialysis. Carlos Rodriguez M.D. I have been assigned to dictate discharge summary on this account and I was not involved in the patient's management. Kailey Ching N.P. DR: SEFERINO JOB#: [id number] CC:
--- NOTE | 2017-10-24 00:15 | Progress Note ---
DATE: 10/15/2017 CARDIOLOGY PROGRESS NOTE SUBJECTIVE: The patient feels weak, lightheaded, and dizzy when ambulating. She is afraid to fall and does not feel capable of going home. OBJECTIVE: VITAL SIGNS: Blood pressure 145/59, pulse 64, and respiratory rate 20. No orthostatic changes noted to my examination. NECK: Supple. LUNGS: Clear. CARDIAC: Regular. Normal S1, S2 with a fourth heart sound. ABDOMEN: Soft. No edema. SKIN: Palpable bruit over graft with no associated skin changes. IMPRESSION: Dizziness and weakness, may be due to labile blood pressure and chronic ischemic heart disease as well as significant fluid shifts related to hemodialysis and ultrafiltration in the setting of end-stage renal disease. The patient has history of malignant range and labile blood pressure and has required frequent titration of these drugs in the past. PLAN: 1. Reassurance. 2. Observation. 3. Monitor orthostatics. 4. Titrate antihypertensives. 5. Avoid tight blood pressure control. 6. Avoid orthostatic risk. 7. Physical and occupational therapy assessment. 8. Hold discharge. Abraham Wren M.D. DR: Shawn JOB#: [id number] CC:
--- NOTE | 2017-10-24 00:30 | Progress Note ---
DATE: 10/16/2017 CARDIOLOGY PROGRESS NOTE SUBJECTIVE: No new complaints. Still with some dizziness. No falls or loss of consciousness. Monitor, sinus, sinus bradycardia, no pauses. OBJECTIVE: VITAL SIGNS: Blood pressure 156/60, pulse 64, respirations 20, and afebrile. LUNGS: Clear. CARDIAC: Regular. Normal S1, S2 with a fourth heart sound. ABDOMEN: Soft. EXTREMITIES: With trace edema. SKIN: Left upper extremity, palpable bruit over graft. NEUROLOGIC: No acute neurologic deficits. IMPRESSION: 1. Possible component of vertiginous labyrinthitis, possible orthostatic symptoms. 2. Labile hypertension with history of malignant-range blood pressure. 3. End-stage renal disease. 4. Diffuse coronary atherosclerosis with calcified vessels and chronic ischemia, status post gna-JL-gipwoenda infarction. 5. Situational depression. PLAN: 1. I would not tighten blood pressure control further. 2. I would limit ultrafiltration. 3. Continue antidepressants. 4. Await physical and occupational therapy. 5. Offered snf facility. 6. Blood glucose monitoring and insulin titration. 7. Continue antianginal, antiplatelet, and anti-lipid drugs without change. 8. The patient is at high risk for complications due to her multiorgan-system disease. Abraham Wren M.D. DR: KARYNA JOB#: [id number] CC:
--- NOTE | 2017-10-24 00:45 | Progress Note ---
DATE: 10/14/2017 CARDIOLOGY PROGRESS NOTE SUBJECTIVE: The patient was seen and evaluated. The case was discussed with her daughter. The patient is depressed. She is anxious to go to the hospital but feels too weak. OBJECTIVE: VITAL SIGNS: Blood pressure is labile at 142/66 to 182/79, heart rate 60 to 70, and respiratory rate 18 to 20. No fevers. LUNGS: Clear. CARDIAC: Regular. Normal S1 and S2 with a fourth heart sound. ABDOMEN: Soft. EXTREMITIES: No edema. Left upper extremity swelling has decreased. IMPRESSION: 1. Acute myocardial infarction. 2. Coronary atherosclerosis. 3. Hypertensive heart disease with labile blood pressure. 4. Insulin-requiring diabetes mellitus with complications. 5. End-stage renal disease, on hemodialysis. 6. Status post fistulogram with no signs of obstruction. 7. Situational depression. PLAN: 1. Agree with antidepressant trial. 2. Continue current anti-platelet, anti-lipid, and anti-anginal regimen including long-acting nitrates. 3. Titrate antihypertensives. 4. Avoid orthostasis. 5. Insulin coverage by sliding scale. 6. Hemodialysis with ultrafiltration 3 times a week. Abraham Wren M.D. DR: KARYNA JOB#: [id number] CC:
== END 2017-10-18 14:40 | disposition home or self-care (01) | DRG 637 ==
LOC: EDBD 13:11 → EDBEDREQ 13:19 → EMR 13:35 → 2E 13:48 → OBSVTOIN 13:48 → EDBEDREQ 14:06
PROC: 5A1D70Z Performance of Urinary Filtration, Intermittent, Less than 6 Hours Per Day (ICD-10-PCS; principal; 2017-10-10)
PROC: B5171ZZ Fluoroscopy of Left Subclavian Vein using Low Osmolar Contrast (ICD-10-PCS; 2017-10-12)
DX: E10.649 Type 1 diabetes mellitus with hypoglycemia without coma (principal); I50.33 Acute on chronic diastolic (congestive) heart failure; G93.41 Metabolic encephalopathy; I87.1 Compression of vein; N18.6 End stage renal disease; S40.822A Blister (nonthermal) of left upper arm, initial encounter; I13.2 Hypertensive heart and chronic kidney disease with heart failure and with stage 5 chronic kidney disease, or end stage renal disease; E10.22 Type 1 diabetes mellitus with diabetic chronic kidney disease; Z79.4 Long term (current) use of insulin; Z99.2 Dependence on renal dialysis; D72.829 Elevated white blood cell count, unspecified; I73.9 Peripheral vascular disease, unspecified; I25.2 Old myocardial infarction; H40.9 Unspecified glaucoma; E10.59 Type 1 diabetes mellitus with other circulatory complications; E10.40 Type 1 diabetes mellitus with diabetic neuropathy, unspecified; I12.9 Hypertensive chronic kidney disease with stage 1 through stage 4 chronic kidney disease, or unspecified chronic kidney disease; F32.89 Other specified depressive episodes; I25.118 Atherosclerotic heart disease of native coronary artery with other forms of angina pectoris; Z95.5 Presence of coronary angioplasty implant and graft; X58.XXXA Exposure to other specified factors, initial encounter
CPT/HCPCS: 36415; 70450; 71010; 80048; 80053; 80202; 81003; 82550; 82553; 82962; 83605; 83880; 84484; 85007; 85025; 85610; 85730; 86705; 86709; 86803; 87040; 87081; 87340; 93005; 93971; 99285; J2250; J2405

== ENCOUNTER 2017-12-05 09:05 | Inpatient (IN) | payer MEDICARE, BC, OTHER ==
[~2017-12-05] VITALS: Ht 160 cm; Wt 57.6 kg
[2017-12-05] VITALS (7 sets, daily range): BP systolic 162–188; BP diastolic 50–87
[~2017-12-05 09:05] MED LIST changes: +HYDRALAZINE HC100 MG ORAL; +ISOSORBIDE MONO30 M1 PO; +PANTOPRAZOLE SO40 MG ORAL
--- NOTE | 2017-12-05 09:07 | Emergency Room Report ---
History of Present Illness General Chief Complaint: Upper Respiratory Illness Source: Patient, Medical Record, EMS Present Illness HPI [id number] with SOB since this morning. Per EMS, patient states patient scheduled for HD today for known ESRD. Patient not stating why she didnt go. To every question I ask patient she states "it doesnt matter." EMS states family endorses history of depression. HPI otherwise limited. Per EMR: 1. End-stage renal disease. 2. Insulin-dependent diabetes. 3. Troponin leak, likely from chronic ischemic cardiomyopathy. 4. History of recent non-ST elevation myocardial infarction. Allergies: Coded Allergies: CODEINE (Unverified Allergy, Unknown, 12/05/17) SULFATHIAZOLE (Unverified Allergy, Unknown, 12/05/17) Patient History Past Medical History: unable to obtain, renal disease, dialysis Past Surgical History: unable to obtain Pertinent Family History: unable to obtain Social History: Denies: smoking, alcohol use, drug use Now: No Immunizations: UTD Reviewed Nursing Documentation: PMH: Agreed, PSxH: Agreed Nursing Documentation-PMH Past Medical History: No History, Except For Hx Cardiac Problems: Yes Hx Diabetes: Yes Hx Dialysis: Yes - MWF Review of Systems All Other Systems: limited - Patient not cooperative with HPI Physical Exam Vital Signs Date Time Temp Pulse Resp B/P (MAP) Pulse Ox O2 Delivery O2 Flow Rate FiO2 12/05/17 09:02 97.7 66 24 181/64 100 Nasal Cannula 4.0 Sp02 EP Interpretation: reviewed, normal General Appearance: normal inspection, well appearing, no apparent distress, alert, GCS 15, non-toxic, other - Eyes closed, flat affect, disinterested in providing HPI Head: normocephalic, atraumatic Eyes: bilateral eye PERRL, bilateral eye EOMI ENT: normal ENT inspection, hearing grossly normal, normal pharynx, no angioedema, normal voice, TMs + canals normal, uvula midline, moist mucus membranes Neck: normal inspection, full range of motion, supple, thyroid normal, no meningismus, no bony tend Respiratory: normal inspection, no rhonchi, no respiratory distress, no retraction, no accessory muscle use, no wheezing, crackles, speaking full sentences, other - Crackles left upper lung Cardiovascular #1: regular rate, rhythm, no edema, no JVD, normal capillary refill Gastrointestinal: normal inspection, normal bowel sounds, non tender, soft, no mass, no peritonitis, non-distended, no guarding, no hernia, no pulsatile mass Genitourinary: no CVA tenderness Musculoskeletal: normal inspection, back normal, normal range of motion, no calf tenderness, pelvis stable, Disha's Sign negative Neurologic: normal inspection, alert, oriented x3, responsive, cost recorder III-XII nml as tested, motor strength/tone normal, cerebellar normal, normal gait, speech normal Psychiatric: normal inspection, judgement/insight normal, mood/affect normal, no suicidal/homicidal ideation, no delusions Skin: normal inspection, normal color, no rash Lymphatic: normal inspection, no adenopathy Medical Decision Making Diagnostic Impression: Primary Impression: SOB (shortness of breath) Additional Impressions: CHF (congestive heart failure) Qualified Codes: I50.9 - Heart failure, unspecified CKD (chronic kidney disease) Qualified Codes: N18.6 - End stage renal disease; Z99.2 - Dependence on renal dialysis ER Course 77-year-old female with acute shortness of breath Vital signs stable, afebrile Not hypoxic Patient's chest x-ray consistent with acute on chronic CHF Labs show creatinine 7.6, consistent with previous levels. Potassium level is normal. Hemoglobin is normal. No leukocytosis. Patient was given IV Lasix Remained stable in room air Likely needs dialysis today Admitted to Dr. Wren at 10:42 AM as previously admitting hospitalist. EKG Diagnostic Results Rate: normal Rhythm: NSR ST Segments: no acute changes ASA given to the pt in ED: No Rhythm Strip Diag. Results EP Interpretation: yes Rate: 79 Rhythm: NSR, no PVC's Chest X-Ray Diagnostic Results Chest X-Ray Diagnostic Results : Chest X-Ray Ordered: Yes # of Views/Limited/Complete: 1 View EP Interpretation: Yes Interpretation: no pneumothorax, other - Cardiomegaly, bilateral pulm congestion Electronically Signed by: Dr Justyna Garrison MD Last Vital Signs Date Time Temp Pulse Resp B/P (MAP) Pulse Ox O2 Delivery O2 Flow Rate FiO2 12/05/17 09:02 97.7 66 24 181/64 100 Nasal Cannula 4.0 Status: improved Disposition: ADMITTED INPATIENT Condition: Serious JUSTYNA GARRISON M.D. Dec 05, 2017 09:07
[2017-12-05 09:46] LABS: EOSINOPHILS % (AUTO) 1.3 % (0.0-3.0); HEMATOCRIT 28.4 % (37.0-47.0); HEMOGLOBIN 9.2 G/DL (12.0-16.0); LYMPHOCYTES % (AUTO) 16.8 % (20.0-45.0); MEAN CORPUSCULAR VOLUME 88 FL (80-99); MONOCYTES % (AUTO) 8.1 % (1.0-10.0); NEUTROPHILS % (AUTO) 71.7 % (45.0-75.0); PLATELET COUNT 274 K/UL (150-450); RED BLOOD COUNT 3.24 M/UL (4.20-5.40); WHITE BLOOD COUNT 11.6 K/UL (4.8-10.8)
[2017-12-05 09:59] LABS: ANION GAP 11 mmol/L (5-15); BLOOD UREA NITROGEN 33 mg/dL (7-18); CALCIUM 9.4 MG/DL (8.5-10.1); CARBON DIOXIDE 29 MMOL/L (21-32); CHLORIDE 96 MMOL/L (98-107); CREATININE 7.6 MG/DL (0.55-1.30); POTASSIUM 4.8 MMOL/L (3.5-5.1); SODIUM 136 MMOL/L (136-145)
--- NOTE | 2017-12-05 10:05 | Diagnostic Imaging Report ---
Indication: Shortness of breath Technique: XRAY Chest 1v Comparison: 10/10/2017 Findings: Stable cardiomegaly. There is interstitial opacification/edema and patchy bilateral airspace opacities. No large pleural effusion. No pneumothorax. Osteopenia and degenerative change of the spine. No acute osseous abnormality seen. Impression: Cardiomegaly, interstitial edema/opacification and patchy bilateral airspace opacities. Findings are likely related to CHF. Superimposed pneumonia not entirely excluded. Clinical correlation and follow-up exam recommended.
[2017-12-05 10:18] LABS: ALANINE AMINOTRANSFERASE 16 U/L (12-78); ALBUMIN/GLOBULIN RATIO 0.9 (1.0-2.7); ALKALINE PHOSPHATASE 91 U/L (46-116); ASPARTATE AMINO TRANSFERASE 35 U/L (15-37); BILIRUBIN,TOTAL 0.6 MG/DL (0.2-1.0); CREATINE KINASE 107 U/L (26-308)
[2017-12-05] MEDS ORDERED: UNOBMED (10:45)
[2017-12-05] MEDS: NovoLOG Insulin Flexpen SUBQ SCH ×2 (16:29→21:00)
[2017-12-05] MEDS: HydrALAZINE 50mg tab ORAL SCH (17:28)
[2017-12-05] MEDS: Furosemide 80mg tab ORAL SCH (17:28)
[2017-12-05] MEDS ORDERED: Furosemide 80mg tab ORAL SCH (19:00)
[2017-12-05] MEDS ORDERED: HydrALAZINE 50mg tab ORAL SCH (19:00)
[2017-12-05] MEDS: Heparin 5000 units/ml inj SUBQ SCH (21:00)
[2017-12-05] MEDS ORDERED: Epogen (for ESRD on dialysis) SUBQ SCH (21:00)
[2017-12-05] MEDS: Atorvastatin 80mg tab ORAL SCH (21:10)
[2017-12-05] MEDS: cloNIDine 0.2mg Tab ORAL SCH (21:11)
[2017-12-05] MEDS: Levemir Flexpen SUBQ SCH (21:14)
[2017-12-06] VITALS: BP 157/64
[2017-12-06 04:00] VITALS: BP 149/50
[2017-12-06] MEDS: NovoLOG Insulin Flexpen SUBQ SCH ×4 (06:30→21:00)
[2017-12-06] MEDS: Furosemide 80mg tab ORAL SCH (06:36)
[2017-12-06] MEDS: HydrALAZINE 50mg tab ORAL SCH ×2 (06:36→17:34)
[2017-12-06 08:00] VITALS: BP 147/95
[2017-12-06] MEDS: Aspirin Baby 81mg NG SCH (09:00)
[2017-12-06] MEDS: Heparin 5000 units/ml inj SUBQ SCH ×2 (09:00→21:43)
[2017-12-06 09:11] LABS: CHOLESTEROL 157 MG/DL (< 200); HDL CHOLESTEROL 65 MG/DL (40-60); TRIGLYCERIDES 96 MG/DL (30-150)
--- NOTE | 2017-12-06 10:57 | Wound Care Consultation ---
Wound Assessment Wound Assessment : Wound Number: 1 Wound Present on Admission: Yes New Wound: No Status Change of Wound: No Wound Location Body Site Modif: mid Wound Location Body Site: sacral Wound Type: pressure ulcer Kate Test: Does not Kate Pressure Ulcer Stage: II Wound Thickness: Partial Thickness Wound Length: 2.5 Wound Width: 1.5 Wound Depth: 0.1 Percent of Wound Corrigan/Red: 100 Wound Drainage Amount: None Wound Drainage Odor: None/Absent Tissue Surrounding Wound: Denuded Wound General Appearance: Reddened, Draining Wound Comment #1 Sacral stage II pressure ulcer Recommendation -Local wound care per protocol -Offload both heels -Heel protector on both heels -Optimize nutrition -Keep clean and dry -Turn and reposition -Low air loss mattress -Assess and f/u accordingly for any changes ROSSI MCKINNON RN Dec 06, 2017 10:57
[2017-12-06] MEDS: Losartan 50mg tab ORAL SCH (11:25)
[2017-12-06] MEDS: Imdur 30mg tab ORAL SCH (11:25)
[2017-12-06] MEDS: Nephrovite tab (Rena-Vite) ORAL SCH (11:26)
[2017-12-06] MEDS: cloNIDine 0.2mg Tab ORAL SCH ×2 (11:26→21:38)
[2017-12-06 12:00] VITALS: BP 146/54
--- NOTE | 2017-12-06 13:14 | Nephrology Progress Note ---
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 (2) Acute coronary syndromes (3) CHF (congestive heart failure) (4) End-stage renal disease Assessment hd via avf 12/06+12/07 Subjective Constitutional: Reports: weakness HEENT: Reports: no symptoms Genitourinary: Reports: no symptoms Neurologic/Psychiatric: Reports: no symptoms Objective Objective Last 24 Hour Vital Signs Date Time Temp Pulse Resp B/P (MAP) Pulse Ox O2 Delivery O2 Flow Rate FiO2 12/06/17 11:26 146/54 12/06/17 11:26 67 146/54 12/06/17 11:25 146/54 12/06/17 11:25 146/54 12/06/17 08:00 98.2 69 20 147/95 95 12/06/17 06:36 155/74 12/06/17 06:35 89 155/74 12/06/17 04:00 72 12/06/17 04:00 98.1 59 16 149/50 96 12/06/17 00:00 55 12/06/17 00:00 97.7 58 18 157/64 97 12/05/17 21:11 188/70 12/05/17 21:10 70 188/63 12/05/17 20:00 67 12/05/17 20:00 97.0 66 16 184/69 91 12/05/17 19:11 Nasal Cannula 2.0 28 12/05/17 19:11 97 Nasal Cannula 2.0 28 12/05/17 17:28 61 179/70 12/05/17 17:28 179/70 12/05/17 16:11 96.6 61 18 179/70 100 Nasal Cannula 2.0 12/05/17 16:00 54 12/05/17 15:28 Nasal Cannula 2.0 28 12/05/17 15:28 98 Nasal Cannula 2.0 28 Intake and Output 12/05/17 12/06/17 19:00 07:00 Intake Total 120 ml Balance 120 ml Intake Oral 120 ml # Voids 1 1 # Bowel Movements 1 2 Laboratory Tests 12/06/17 04:00: Troponin I 0.105H, Triglycerides Level 96, Cholesterol Level 157, LDL Cholesterol 68, HDL Cholesterol 65H, Cholesterol/HDL Ratio 2.4L 12/06/17 08:45: Prothrombin Time 10.7, Prothromb Time International Ratio 1.0, Activated Partial Thromboplast Time 26 Height (Feet): 5 Height (Inches): 3.00 Weight (Pounds): 125 General Appearance: no apparent distress, alert EENT: normal ENT inspection Neck: normal alignment Cardiovascular: regular rhythm Respiratory/Chest: lungs clear Abdomen: non tender, soft Extremities: trace edema 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
[2017-12-06] MEDS ORDERED: Heparin Sod 1000 units/ml 10ml IV ONE (14:57)
[2017-12-06 16:00] VITALS: BP 121/57
--- NOTE | 2017-12-06 16:30 | Consultation ---
DATE OF CONSULTATION: 12/05/2017 CARDIOLOGY CONSULTATION CONSULTING PHYSICIAN: Abraham Wren M.D. REQUESTING PHYSICIAN: Carlos Rodriguez M.D. REASON FOR CONSULTATION: Acute coronary syndrome and possible acute myocardial infarction. HISTORY OF PRESENT ILLNESS: This 77-year-old female has a known history of coronary artery disease. She recently had a non-ST elevation infarction and had a cardiac catheterization within the last two months at [facility]. She was noted to have severe diffuse calcified vessels, not amenable to any coronary intervention and medical therapy has been implemented since. This morning, the patient had chest pain. She was weak. She was found by her daughter. She was given 3 nitroglycerin with ultimate resolution of pain. She was severely weakened and could not go to her dialysis session. Her daughter also states that the patient has been increasingly confused and needy. PAST MEDICAL HISTORY: Ischemic cardiomyopathy, hypertensive heart disease, peripheral artery disease, insulin-requiring diabetes mellitus, end-stage renal disease, diabetic neuropathy, peripheral artery disease with prior revascularization, and cerebrovascular disease. ALLERGIES: Include sulfa and codeine. FAMILY HISTORY: Notable for diabetes. SOCIAL HISTORY: Negative for smoking, alcohol, or substance abuse. MEDICATIONS: Prior to admission, reviewed and reconciled. REVIEW OF SYSTEMS: She received a flu vaccination this season. No fevers or chills. Some cough. No leg swelling. She has not been compliant with dialysis other than today. She has not noted any change in bowel habits. She does have multi-infarct disease. There is no history of prior stroke. PHYSICAL EXAMINATION: VITAL SIGNS: Afebrile. Blood pressure 181/64, pulse 66, respirations 24. HEENT: Temporal wasting. Pale conjunctivae. Arcus senilis. Oropharynx clear. NECK: Supple. Jugular venous pressure elevated. CHEST: No accessory muscle use. Chest wall without deformity. LUNGS: Clear breath sounds. No wheezing or rales. CARDIAC: Regular rhythm and rate. Normal S1, S2 with a fourth heart sound and a 1/6 systolic murmur at apex. ABDOMEN: Soft and nontender. EXTREMITIES: No edema. NEUROLOGIC: Nonfocal. Bruit palpable over RUE graft. LABORATORY DATA: Sodium 136, potassium 4.8, bicarbonate 29, BUN 33, and creatinine 7.6. Troponin 0.058. Pro-natriuretic peptide is almost 30,000. Albumin 4.0. White count is 11.6 and hemoglobin 9.2. IMPRESSION: 1. Acute coronary syndrome. 2. Possible [id number]-PM-hkxumsepn myocardial infarction. 3. Acute on chronic diastolic congestive heart failure. 4. End-stage renal disease. PLAN: 1. Evaluate dialysis access for adequate function. 2. Maximize antianginal and anti-failure regimen. 3. Hemodialysis with ultrafiltration. 4. Consider antidepressant therapy. Abraham Wren M.D. DR: RAYMUNDO JOB#: [id number] CC: ROSIBEL
--- NOTE | 2017-12-06 17:30 | Consultation ---
DATE OF CONSULTATION: 12/05/2017 NEPHROLOGY CONSULTATION REFERRING PHYSICIAN: Abraham Wren M.D. and Ana M Rodriguez M.D. REASON FOR CONSULTATION: End-stage renal disease. HISTORY OF PRESENT ILLNESS: The patient has end-stage renal disease on dialysis for many years, has insulin-dependent diabetes and severe hypertension on multiple medications. She was due for dialysis on 12/05/2017, but came to the emergency room with shortness of breath and generalized weakness. She is found to have chest x-ray evidence of congestive heart failure with possible superimposed infiltrates. She is weak and complaining of some shortness of breath. She has had mild chest pain. The patient has had coronary artery disease and history of cardiac catheterization with calcified vessels and medical management. There is a history of malignant hypertension and peripheral vascular disease. PAST SURGICAL HISTORY: Tubal , vascular surgery with left axillary femoral bypass, section, cataract both eyes, and AV fistula right arm. MEDICATIONS: Home medications include aspirin, Lipitor, Coreg, clonidine, furosemide, insulin, losartan, isosorbide, nifedipine, Protonix, sevelamer, and Nephro-Wilfrid. ALLERGIES: No definite allergies, but she has had intolerance to morphine in the past. HABITS: She is a nondrinker and nonsmoker. No use of illicit drugs. REVIEW OF SYSTEMS: HEENT: She has had glaucoma. Vision is stable. Hearing is good. ENDOCRINE: Longstanding insulin-dependent diabetes, generally well controlled. No thyroid disease. PULMONARY: No asthma or TB. CARDIAC: History of congestive heart failure, malignant hypertension, and coronary artery disease. GASTROINTESTINAL: No gastrointestinal bleeding or chronic abdominal pain but she has been anorexic recently. GENITOURINARY: She has had several UTIs in the past. No current dysuria. NEUROLOGIC: No CVA or seizures. MUSCULOSKELETAL: No severe arthritis. PHYSICAL EXAMINATION: GENERAL: The patient is alert lady, lying in bed, weak somewhat withdrawn. VITAL SIGNS: Temperature 97.5 degrees, pulse 60, respirations 18, blood pressure 162/87, and O2 saturation 100% on nasal cannula. HEENT: Sclerae are nonicteric. Ocular motions intact in all directions. Oral mucosa moist. NECK: No adenopathy or thyroid enlargement. LUNGS: Clear. HEART: Regular rhythm. I hear no murmur. ABDOMEN: Soft without organomegaly or masses. EXTREMITIES: Trace edema. She has an AV fistula in the right arm. NEUROLOGIC: She is alert, withdrawn. Cranial nerves are intact. No focal weakness. PERTINENT LABORATORIES AND DIAGNOSTIC DATA: White count 11.6 and hemoglobin 9.2. Sodium 136, potassium 4.8, BUN 33, creatinine 7.6, and glucose 160. Troponin 0.058. BNP of 29,710. IMPRESSION: 1. End-stage renal disease due for dialysis. 2. Congestive heart failure, acute on chronic with diastolic dysfunction. 3. Possible pneumonia. 4. Anemia of renal disease. 5. Borderline troponin, likely ischemic cardiomyopathy. 6. Malignant hypertension. 7. Insulin-dependent diabetes. PLAN: I will work together with primary physician to stabilize her, dialysis for fluid removal. Continue cardiac medications. Monitor closely in view of her comorbidities. Herman Hamm M.D. DR: SANCHEZ JOB#: [id number] CC:
--- NOTE | 2017-12-06 17:48 | Cardiology Report ---
APPROVED REPORT EKG Measurement Heart [id number] NC [id number] Normal sinus rhythm Nonspecific T wave abnormality Abnormal ECG
[2017-12-06 20:00] VITALS: BP 139/54
[2017-12-06] MEDS: Levemir Flexpen SUBQ SCH (21:00)
[2017-12-06] MEDS: Atorvastatin 80mg tab ORAL SCH (21:37)
[2017-12-07] VITALS: BP 125/63
[2017-12-07 04:00] VITALS: BP 146/60
--- NOTE | 2017-12-07 04:15 | Progress Note ---
DATE: 12/06/2017 SUBJECTIVE: The patient feels better. No chest pain. She no longer thinks she is dying. OBJECTIVE: VITAL SIGNS: Blood pressure 146/54, pulse 67, and respirations 20. NECK: Supple. LUNGS: Clear. CARDIAC: Regular rhythm and rate. Normal S1 and S2 with a fourth heart sound. ABDOMEN: Soft. EXTREMITIES: No edema. Palpable bruit over AV graft. LABORATORY DATA: Troponin 0.105. LDL cholesterol 68. IMPRESSION: 1. Acute on chronic diastolic congestive heart failure. 2. Acute myocardial ischemia. 3. Ischemic cardiomyopathy. 4. End-stage renal disease. 5. Insulin-requiring diabetes mellitus. PLAN: 1. Additional hemodialysis with ultrafiltration. 2. Maximize antianginal and anti-failure regimen. 3. Continue statin therapy without change. 4. No plan for vascular intervention and graft is functioning adequately. Abraham Wren M.D. DR: KARYNA JOB#: [id number] CC:
[2017-12-07] MEDS: HydrALAZINE 50mg tab ORAL SCH ×2 (06:25→17:50)
[2017-12-07] MEDS: NovoLOG Insulin Flexpen SUBQ SCH ×3 (06:27→17:54)
[2017-12-07 08:00] VITALS: BP 150/62
[2017-12-07 09:03] LABS: BASOPHILS % (AUTO) 1.3 % (0.0-2.0); EOSINOPHILS % (AUTO) 1.5 % (0.0-3.0); HEMATOCRIT 25.6 % (37.0-47.0); HEMOGLOBIN 8.3 G/DL (12.0-16.0); LYMPHOCYTES % (AUTO) 16.5 % (20.0-45.0); MEAN CORPUSCULAR VOLUME 89 FL (80-99); MONOCYTES % (AUTO) 13.1 % (1.0-10.0); NEUTROPHILS % (AUTO) 67.6 % (45.0-75.0); PLATELET COUNT 269 K/UL (150-450); RED BLOOD COUNT 2.87 M/UL (4.20-5.40); RED CELL DISTRIBUTION WIDTH 22.3 % (11.6-14.8); WHITE BLOOD COUNT 10.3 K/UL (4.8-10.8)
[2017-12-07] MEDS: Nephrovite tab (Rena-Vite) ORAL SCH (09:43)
[2017-12-07] MEDS: Losartan 50mg tab ORAL SCH (09:43)
[2017-12-07] MEDS: Aspirin Baby 81mg NG SCH (09:43)
[2017-12-07] MEDS: Imdur 30mg tab ORAL SCH (09:43)
[2017-12-07] MEDS: cloNIDine 0.2mg Tab ORAL SCH (09:44)
[2017-12-07] MEDS: Heparin 5000 units/ml inj SUBQ SCH (09:45)
[2017-12-07 10:38] LABS: ANION GAP 11 mmol/L (5-15); BLOOD UREA NITROGEN 21 mg/dL (7-18); CALCIUM 9.4 MG/DL (8.5-10.1); CARBON DIOXIDE 27 MMOL/L (21-32); CHLORIDE 101 MMOL/L (98-107); CREATININE 5.7 MG/DL (0.55-1.30); PHOSPHORUS 2.5 MG/DL (2.5-4.9); POTASSIUM 3.8 MMOL/L (3.5-5.1); SODIUM 138 MMOL/L (136-145)
[2017-12-07 12:00] VITALS: BP 139/73
[2017-12-07] MEDS ORDERED: Heparin Sod 1000 units/ml 10ml IV PRN (13:15)
[2017-12-07 16:00] VITALS: BP 145/69
--- NOTE | 2017-12-07 16:11 | General Progress Note ---
Assessment/Plan Problem List: (1) Hypertensive urgency ICD Codes: I10 - Essential (primary) hypertension SNOMED: 175214476 (2) Acute [place] ICD Codes: I21.3 - Acute [place] SNOMED: 00267325 (3) Gastritis ICD Codes: K29.70 - Gastritis SNOMED: 0064287 (4) Sciatica ICD Codes: M54.30 - Sciatica, unspecified side SNOMED: 77187322 (5) chest pain (6) CKD (chronic kidney disease) ICD Codes: N18.9 - Chronic kidney disease, unspecified SNOMED: 612449560 Qualifiers: Qualified Codes: N18.6 - End stage renal disease; Z99.2 - Dependence on renal dialysis Status: stable Assessment/Plan cont current rx monitor labs trend trop HD Subjective ROS Limited/Unobtainable: No Constitutional: Reports: malaise, weakness HEENT: Reports: no symptoms Cardiovascular: Reports: no symptoms Respiratory: Reports: cough Gastrointestinal/Abdominal: Reports: no symptoms Genitourinary: Reports: no symptoms Neurologic/Psychiatric: Reports: no symptoms Endocrine: Reports: no symptoms Hematologic/Lymphatic: Reports: no symptoms Allergies: Coded Allergies: CODEINE (Unverified Allergy, Unknown, 12/05/17) SULFATHIAZOLE (Unverified Allergy, Unknown, 12/05/17) All Systems: reviewed and negative except above Subjective no events. still with sob. denies chest pain c/o weakness. Objective Last 24 Hour Vital Signs Date Time Temp Pulse Resp B/P (MAP) Pulse Ox O2 Delivery O2 Flow Rate FiO2 12/07/17 16:00 97.0 67 20 145/69 98 12/07/17 12:00 97.2 62 20 139/73 99 12/07/17 12:00 60 12/07/17 09:45 Room Air 12/07/17 09:44 150/62 12/07/17 09:43 150/62 12/07/17 09:43 150/62 12/07/17 09:43 77 150/62 12/07/17 08:00 65 12/07/17 08:00 98.1 77 16 150/62 99 12/07/17 07:18 96 Nasal Cannula 2.0 28 12/07/17 07:18 Nasal Cannula 2.0 28 12/07/17 06:25 88 146/60 12/07/17 06:25 146/60 12/07/17 04:00 72 12/07/17 04:00 98.6 69 16 146/60 100 12/07/17 00:00 97.9 69 16 125/63 97 12/07/17 00:00 64 18 21:38 154/59 12/06/17 21:37 70 154/59 12/06/17 20:00 97.7 61 16 139/54 93 12/06/17 20:00 61 12/06/17 19:30 96 Nasal Cannula 2.0 28 12/06/17 19:30 Nasal Cannula 2.0 28 12/06/17 17:34 62 146/54 12/06/17 17:34 146/54 Intake and Output 12/06/17 12/07/17 19:00 07:00 Intake Total 120 ml 240 ml Balance 120 ml 240 ml Intake Oral 120 ml 240 ml # Bowel Movements 2 1 Laboratory Tests 12/07/17 08:30: White Blood Count 10.3, Red Blood Count 2.87L, Hemoglobin 8.3L, Hematocrit 25.6L , Mean Corpuscular Volume 89, Mean Corpuscular Hemoglobin 28.9, Mean Corpuscular Hemoglobin Concent 32.5, Red Cell Distribution Width 22.3H, Platelet Count 269, Mean Platelet Volume 7.4, Neutrophils (%) (Auto) 67.6, Lymphocytes (%) (Auto) 16.5L, Monocytes (%) (Auto) 13.1H, Eosinophils (%) (Auto ) 1.5, Basophils (%) (Auto) 1.3, Sodium Level 138, Potassium Level 3.8, Chloride Level 101, Carbon Dioxide Level 27, Anion Gap 11, Blood Urea Nitrogen 21H, Creatinine 5.7H, Estimat Glomerular Filtration Rate , Glucose Level 126H, Calcium Level 9.4, Phosphorus Level 2.5 Height (Feet): 5 Height (Inches): 3.00 Weight (Pounds): 127 General Appearance: WD/WN, alert Neck: supple Cardiovascular: regular rhythm Respiratory/Chest: lungs clear Abdomen: normal bowel sounds, non tender, soft, no organomegaly Edema: no edema noted Arm (L), no edema noted Arm (R), no edema noted Leg (L), no edema noted Leg (R), no edema noted Pedal (L), no edema noted Pedal (R), no edema noted Generalized Neurologic: alert, oriented x 3 TIM RAZO Dec 07, 2017 16:11
--- NOTE | 2017-12-07 16:36 | Nephrology Progress Note ---
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 (2) Acute coronary syndromes (3) CHF (congestive heart failure) (4) End-stage renal disease Assessment hd via avf 12/06+12/07--stable , feels better, low hb will increase meds at outpatient hd, ready for dc Subjective Constitutional: Reports: weakness HEENT: Reports: no symptoms Genitourinary: Reports: no symptoms Neurologic/Psychiatric: Reports: no symptoms Objective Objective Last 24 Hour Vital Signs Date Time Temp Pulse Resp B/P (MAP) Pulse Ox O2 Delivery O2 Flow Rate FiO2 12/07/17 16:00 97.0 67 20 145/69 98 12/07/17 16:00 70 12/07/17 12:00 97.2 62 20 139/73 99 12/07/17 12:00 60 12/07/17 09:45 Room Air 12/07/17 09:44 150/62 12/07/17 09:43 150/62 12/07/17 09:43 150/62 12/07/17 09:43 77 150/62 12/07/17 08:00 65 12/07/17 08:00 98.1 77 16 150/62 99 12/07/17 07:18 96 Nasal Cannula 2.0 28 12/07/17 07:18 Nasal Cannula 2.0 28 12/07/17 06:25 88 146/60 12/07/17 06:25 146/60 12/07/17 04:00 72 12/07/17 04:00 98.6 69 16 146/60 100 12/07/17 00:00 97.9 69 16 125/63 97 12/07/17 00:00 64 12/06/17 21:38 154/59 12/06/17 21:37 70 154/59 12/06/17 20:00 97.7 61 16 139/54 93 12/06/17 20:00 61 12/06/17 19:30 96 Nasal Cannula 2.0 28 12/06/17 19:30 Nasal Cannula 2.0 28 12/06/17 17:34 62 146/54 12/06/17 17:34 146/54 Intake and Output 12/06/17 12/07/17 19:00 07:00 Intake Total 120 ml 240 ml Balance 120 ml 240 ml Intake Oral 120 ml 240 ml # Bowel Movements 2 1 Laboratory Tests 12/07/17 08:30: White Blood Count 10.3, Red Blood Count 2.87L, Hemoglobin 8.3L, Hematocrit 25.6L , Mean Corpuscular Volume 89, Mean Corpuscular Hemoglobin 28.9, Mean Corpuscular Hemoglobin Concent 32.5, Red Cell Distribution Width 22.3H, Platelet Count 269, Mean Platelet Volume 7.4, Neutrophils (%) (Auto) 67.6, Lymphocytes (%) (Auto) 16.5L, Monocytes (%) (Auto) 13.1H, Eosinophils (%) (Auto ) 1.5, Basophils (%) (Auto) 1.3, Sodium Level 138, Potassium Level 3.8, Chloride Level 101, Carbon Dioxide Level 27, Anion Gap 11, Blood Urea Nitrogen 21H, Creatinine 5.7H, Estimat Glomerular Filtration Rate , Glucose Level 126H, Calcium Level 9.4, Phosphorus Level 2.5 Height (Feet): 5 Height (Inches): 3.00 Weight (Pounds): 127 General Appearance: no apparent distress, alert EENT: normal ENT inspection Neck: normal alignment Cardiovascular: regular rhythm Respiratory/Chest: lungs clear Abdomen: non tender, soft Extremities: other - no edema 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
[2017-12-07 17:54] VITALS: BP 145/69
[2017-12-07] MEDS ORDERED: NS 275ml ONE (20:22)
[2017-12-07] MEDS ORDERED: Tubing IV Secondary IV ONE (20:22)
[2017-12-07] MEDS ORDERED: Tubing Blood Filter IV ONE (20:22)
[2017-12-07] MEDS ORDERED: NS 500ML ONE (20:22)
--- NOTE | 2017-12-07 21:33 | Progress Note ---
DATE: 12/07/2017 CARDIOLOGY CONSULT SUBJECTIVE: The patient has had dialysis via AV fistula yesterday and today. She notes less shortness of breath. She feels better and is mobilizing with a better appetite. OBJECTIVE: VITAL SIGNS: Blood pressure 145/69, pulse 67, and respirations 20. Afebrile. LUNGS: Clear. Palpable bruit over the right forearm. CARDIAC: Regular rhythm and rate. Normal S1, S2 with a fourth heart sound. EXTREMITIES: Perfused with no edema. LABORATORY DATA: White count 10 and hemoglobin 8.3. BUN 21 and creatinine 5.7. Potassium 3.8 and phosphorus 2.5. LDL cholesterol 68. IMPRESSION: 1. Acute coronary insufficiency. 2. Ischemic cardiomyopathy. 3. Acute on chronic diastolic congestive heart failure. 4. End-stage renal disease. 5. Hypertensive heart disease with history of malignant range hypertension. 6. Insulin-requiring diabetes mellitus. 7. Uremia, resolved. 8. Anemia of chronic kidney disease. PLAN: 1. Stable for outpatient management. 2. Continue Epogen and iron replacement. 3. Current cardiovascular regimen renewed without change. 4. Discussed with patient and daughter. 5. Continued medical management. 6. P.r.n. sublingual nitrates may be given for anginal episode. 7. Outpatient followup arranged. Abraham Wren M.D. DR: KIM JOB#: [id number] CC:
--- NOTE | 2017-12-07 22:18 | History and Physical Report ---
DATE OF ADMISSION: 12/05/2017 CHIEF COMPLAINT: Congestive heart failure exacerbation. HISTORY OF PRESENT ILLNESS: The patient is a pleasant 77-year-old female. She was admitted with complaints of possible syncopal episode and congestive heart failure exacerbation. According to the patient, she was brought in to the emergency room with complaints of shortness of breath. According to the patient, she was waiting for dialysis greens picker when she woke, she had missed her dialysis greens picker. She is unclear whether or not she fell asleep or that she had a syncopal episode. She was noted to be more short of breath and presented to the emergency room. She was diagnosed with congestive heart failure secondary to missed her hemodialysis. She is now admitted for further evaluation and care. PAST MEDICAL HISTORY: Significant for history of ischemic cardiomyopathy, history of peripheral artery disease, history of AV fistula, history of hypertension, history of congestive heart failure, and diabetes. PAST SURGICAL HISTORY: As above. CURRENT MEDICATIONS: Reconciled and reviewed. ALLERGIES: Include morphine. FAMILY HISTORY: Noncontributory. SOCIAL HISTORY: There is no known history of tobacco, ethanol, or drugs. REVIEW OF SYSTEMS: GENERAL: No fever or chills. HEENT: No headaches or visual changes. CARDIOPULMONARY: No chest pain. Positive shortness of breath. GASTROINTESTINAL: No nausea or vomiting. Positive anorexia. GENITOURINARY: No urgency or frequency. MUSCULOSKELETAL: No joint pain or swelling. NEUROLOGIC: No evidence of seizures. PHYSICAL EXAMINATION: VITAL SIGNS: Temperature 98 degrees, blood pressure 168/90, pulse of 80, and respirations 20. GENERAL: The patient is well-developed, thin female, in no apparent distress. She is awake and alert. She is weak, but does answer questions. Follows commands. NECK: Supple. There is no jugular venous distention. HEART: Regular rate and rhythm. LUNGS: Clear anteriorly. ABDOMEN: Soft, nontender and nondistended. EXTREMITIES: No clubbing, cyanosis, or edema. There is a right AV fistula with a good bruit. PERTINENT DATA: Hemoglobin was 9. Creatinine 7.6. Troponin was 0.058. Natriuretic peptide level is 30,000. ASSESSMENT: This is a pleasant female, admitted with possible syncopal episode, congestive heart failure secondary to missed dialysis, possible acute myocardial infarction, peripheral artery disease and diabetes. PLAN: Admit to monitored bed. Serial enzymes. Supplemental oxygen. Renal Cardiology consultation. Hemodialysis with ultrafiltration. Continue outpatient cardiac and diabetic regimen. Carlos Rodriguez M.D. DR: ROSITA JOB#: [id number] CC:
--- NOTE | 2017-12-08 17:31 | Discharge Summary ---
Discharge Summary Hospital Course Date of Admission Dec 05, 2017 at 09:39 Date of Discharge Dec 07, 2017 at 20:23 Admitting Diagnosis dyspnes, dialysis HPI Haroon Munguia is a 77 year old female who was admitted on Dec 05, 2017 at 09: 39 for Dyspnea,Dialysis Hospital Course [id number] Discharge Discharge Disposition Patient was discharged to Home (01) Discharge Diagnoses: Kailey Ching NP Dec 08, 2017 17:31
--- NOTE | 2017-12-09 00:15 | Discharge Summary 2 SIG ---
DATE OF ADMISSION: 12/05/2017 DATE OF DISCHARGE: 12/07/2017 ATTENDING PHYSICIAN: Abraham Wren M.D. CONSULTANTS: 1. Herman Hamm M.D. 2. Carlos Rodriguez M.D. BRIEF HOSPITAL COURSE: The patient is a 77-year-old pleasant female, who was admitted with complaints of possible syncopal episode and congestive heart failure. The patient missed her dialysis and was noted to be more short of breath. She presented to the emergency room. She recently had a [id number] myocardial infarction and had a cardiac catheterization within the last two months at [facility]. She was noted to have severe diffuse calcific vessels not amenable to any coronary intervention and medical therapy has been implemented since then. On the morning of admission, she had chest pain and weakness. She was taken to the emergency room. On evaluation, chest x-ray was consistent with acute on chronic congestive heart failure. Creatinine was 7.6. She was given IV Lasix and was admitted to telemetry. She underwent hemodialysis. She had an AV graft. Troponin was elevated and troponin levels were monitored. She was given Epogen and iron replacement and was placed on p.r.n. nitroglycerin. Lipitor was continued together with aspirin. She had Cozaar, Imdur, and Coreg. Blood glucose was monitored and was given Levemir 14 units nightly and hydralazine 150 mg q.12 hours and Renvela 800 mg t.i.d. She was eventually discharged home to continue outpatient hemodialysis. FINAL DIAGNOSES: 1. Acute coronary insufficiency. 2. Ischemic cardiomyopathy. 3. Acute on chronic diastolic congestive heart failure. 4. End-stage renal disease, on hemodialysis. 5. Hypertensive heart disease with history of malignant range hypertension. 6. Insulin-requiring diabetes mellitus. 7. Uremia, resolved. 8. Anemia of chronic kidney disease. 9. Gastritis. 10. Sciatica. DISPOSITION: The patient was discharged home. DISCHARGE MEDICATIONS: Refer to medication list. DISCHARGE INSTRUCTIONS: Follow up with PMD in a week and continue with scheduled outpatient hemodialysis. Herman Hamm M.D. I have been assigned to dictate discharge summary on this account and I was not involved in the patient's management. Kailey Ching N.P. DR: CECY JOB#: [id number] CC: ROSIBEL
== END 2017-12-07 20:23 | disposition home or self-care (01) | DRG 291 ==
LOC: EDBD 09:05 → EDBEDREQ 09:11 → EMR 09:15 → 2E 09:39 → EDBEDREQ 09:45 → EDBEDREQSVC 10:48 → EDBEDREQ 10:48
PROC: 5A1D70Z Performance of Urinary Filtration, Intermittent, Less than 6 Hours Per Day (ICD-10-PCS; principal; 2017-12-05)
DX: I13.2 Hypertensive heart and chronic kidney disease with heart failure and with stage 5 chronic kidney disease, or end stage renal disease (principal); N18.6 End stage renal disease; E10.22 Type 1 diabetes mellitus with diabetic chronic kidney disease; I50.33 Acute on chronic diastolic (congestive) heart failure; I25.2 Old myocardial infarction; E10.51 Type 1 diabetes mellitus with diabetic peripheral angiopathy without gangrene; E10.40 Type 1 diabetes mellitus with diabetic neuropathy, unspecified; I25.5 Ischemic cardiomyopathy; D63.1 Anemia in chronic kidney disease; I16.0 Hypertensive urgency; M54.30 Sciatica, unspecified side; Z99.2 Dependence on renal dialysis; Z79.4 Long term (current) use of insulin; K29.70 Gastritis, unspecified, without bleeding
CPT/HCPCS: 36415; 71045; 80048; 80053; 80061; 80307; 82550; 82553; 82962; 83880; 84100; 84484; 85025; 85610; 85730; 93005; 94760; 99285; J1815; S5561